=== PATIENT | male | born 1930 | race Caucasian/White ===

== ENCOUNTER 2016-12-28 11:05 | Observation (INO) | payer MEDICARE, BC ==
[~2016-12-28] VITALS: Ht 167.6 cm; Wt 65.9 kg
[2016-12-28] VITALS (8 sets, daily range): BP systolic 117–162; BP diastolic 64–82; PULSE 51–68; RESP 16–18; TEMP 96.4–98; O2SAT 93–97
[2016-12-28] MEDS ORDERED: METH5TAB7 PO (11:32)
[2016-12-28] MEDS ORDERED: ASPI325T PO (11:32)
[2016-12-28] MEDS ORDERED: MONUPAK PO (11:32)
[2016-12-28] MEDS ORDERED: ATOR10TA15 PO (11:32)
[2016-12-28] MEDS ORDERED: PARO20TA2 PO (11:32)
[2016-12-28] MEDS ORDERED: FERR325T PO (11:32)
[2016-12-28] MEDS ORDERED: AMLO5TAB2 PO (11:32)
[2016-12-28] MEDS ORDERED: SODI650T PO (11:32)
[2016-12-28] MEDS ORDERED: TUMS500C CHEW (11:32)
[2016-12-28] MEDS ORDERED: MULT1TAB84 PO (11:32)
[2016-12-28] MEDS ORDERED: METO25TA3 PO (11:32)
[2016-12-28] MEDS ORDERED: LEVO25TA4 PO (11:32)
[2016-12-28] MEDS ORDERED: TAMS0.4C4 PO (11:32)
[2016-12-28] MEDS ORDERED: ACET500C PO (11:33)
[2016-12-28] MEDS ORDERED: ALPR0.5T3 PO (11:33)
[2016-12-28] MEDS ORDERED: SODIUM CHLORIDE 0.9% FLUSH 5 ML FLUSH IVF PRN (11:45)
[2016-12-28] MEDS ORDERED: SODIUM CHLORID 0.9% 500 ML INJ 500 ML IV ONE (11:45)
[2016-12-28 12:21] LABS: AUTOMATED NEUTROPHIL # 3.5 TH/MM3 (1.8-7.7); BASOPHIL % 0.2 % (0.0-2.0); EOSINOPHIL # 0.2 TH/MM3 (0-0.4); EOSINOPHIL % 3.7 % (0.0-4.0); HEMATOCRIT 34.7 % (39.0-51.0); HEMO FLAGS DIFF FINAL; LYMPH % 23.1 % (9.0-44.0); LYMPHOCYTE # 1.2 TH/MM3 (1.0-4.8); MEAN CELL VOLUME 96.2 FL (80.0-100.0); MEAN CORPUSCULAR HEMOGLOBIN 31.9 PG (27.0-34.0); MEAN CORPUSCULAR HGB CONC 33.2 % (32.0-36.0); PLATELET COUNT 184 TH/MM3 (150-450); RED BLOOD COUNT 3.61 MIL/MM3 (4.50-5.90); RED CELL DISTRIBUTION WIDTH 13.3 % (11.6-17.2); WHITE BLOOD COUNT 5.4 TH/MM3 (4.0-11.0)
[2016-12-28 12:23] LABS: CHLORIDE 104 MEQ/L (98-107); SODIUM (NA) 142 MEQ/L (136-145)
[2016-12-28 12:26] LABS: ANION GAP 11 MEQ/L (5-15); BICARBONATE 26.8 MEQ/L (21.0-32.0); BLOOD UREA NITROGEN 73 MG/DL (7-18); MAGNESIUM 3.1 MG/DL (1.5-2.5)
[2016-12-28 12:27] LABS: PROTHROMBIN TIME - PATIENT 10.8 SEC (9.8-11.6)
[2016-12-28 12:29] LABS: AST (GOT) 13 U/L (15-37); GLOMERULAR FILTRATION RATE 8 ML/MIN (>89)
[2016-12-28 12:31] LABS: TOTAL BILIRUBIN ADULT 0.2 MG/DL (0.2-1.0)
[2016-12-28 12:32] LABS: ALKALINE PHOSPHATASE 79 U/L (45-117)
[2016-12-28 12:35] LABS: ALT (GPT) 13 U/L (12-78); CREATINE KINASE 85 U/L (39-308)
--- NOTE | 2016-12-28 13:03 | RADHPO ---
EXAM DATE/TIME: 12/28/2016 12:28 [place] COMPARISON: No previous studies available for comparison. INDICATIONS : General weakness. RADIATION DOSE: 67.49 CTDIvol (mGy) MEDICAL HISTORY : Cerebrovascular disease. Renal insufficiency, chronic. Cardiovascular disease. Hypertension. SURGICAL HISTORY : CABG ENCOUNTER: Initial ACUITY: 2 days PAIN SCALE: 0/10 LOCATION: cranial TECHNIQUE: Multiple contiguous axial images were obtained of the head. Using automated exposure control and adj ustment of the mA and/or kV according to patient size, radiation dose was kept as low as reasonably a chievable to obtain optimal diagnostic quality images. FINDINGS: Diffuse cerebral atrophy is noted. There is an old infarct involving the left basal ganglia with ex-vacuo dilatation of the left lateral ventricle. Significant periventricular and subcortical white matter small vessel ischemic changes are noted bilaterally. There is no acute hemorrhage, acute infarct, mass ef fect or extraaxial fluid collections. The bone windows are unremarkable. There are scattered lacuna r infarcts within the right basal ganglia. CONCLUSION: 1. Severe periventricular and subcortical white matter small vessel ischemic changes bilaterally. 2. Old infarct involving the left basal ganglia with ex-vacuo dilatation of the left lateral ventric le. 3. Diffuse cerebral atrophy. 4. Scattered old lacunar infarcts within the right basal ganglia. 5. No acute infarct, acute hemorrhage, mass effect or extraaxial fluid collections. Ronal Smith MD on December 28, 2016 at 12:48 Board Certified Radiologist. This report was verified electronically.
[2016-12-28 13:19] LABS: BLOOD, URINE LARGE (NEG); GLUCOSE,URINE 250 mg/dL (NEG); KETONE, URINE NEG (NEG)
[2016-12-28 13:20] LABS: NITRITE,URINE POS (NEG)
[2016-12-28 13:23] LABS: METHOD OF COLLECTION CLEAN CATCH; URINE COLOR YELLOW (YELLW/STRAW)
[2016-12-28 13:24] LABS: SQUAMOUS EPITHELIAL CELL URINE 0-5 /hpf (0-5); TRANSITIONAL EPI CELLS, URINE 0-5 /hpf
[2016-12-28 13:27] LABS: COMMENT (UR) CULTURE INDICATED; CULTURE IF INDICATED CULTURE INDICATED
[2016-12-28] MEDS ORDERED: VANCOMYCIN INJ 1,000 MG in SODIUM CHLOR 0.9% 250 ML INJ 250 ML IV STA (13:48)
[2016-12-28] MEDS ORDERED: SODIUM CHLORIDE 0.9% FLUSH 5 ML FLUSH FLUSH PRN (14:30)
--- NOTE | 2016-12-28 14:34 | PD ---
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 Patient's son states that the patient is still on antibiotic for his urinary tract infection which has been resistant to multiple antibiotics in the past. Patient has difficulty verbalizing and his son answers most questions for him. Modifying Factors: None Associated Signs & Symptoms: Worsening fatigue, general weakness Risk Factors: Chronic renal insufficiency, recent UTI, still on antibiotics PFSH Past Medical History Hx Anticoagulant Therapy: No Anxiety: Yes Cardiovascular Problems: Yes (TRIPLE BYPASS, ?NH, HTN) High Cholesterol: Yes Cerebrovascular Accident: Yes (CVA) Diabetes: No Diminished Hearing: No Hypertension: Yes Medical other: Yes (chronice uti's ) Respiratory: No Renal Failure: Yes (renal insuff and kidney disease) Thyroid Disease: Yes Tetanus Vaccination: Unknown Influenza Vaccination: Yes Past Surgical History Cardiac Surgery: Yes (cabg) Social History Alcohol Use: No Tobacco Use: No (never) Substance Use: No Allergies-Medications (Allergen,Severity, Reaction): Coded Allergies: No Known Allergies (Unverified , 12/28/16) Reported Meds & Prescriptions Reported Meds & Active Scripts Active Reported Alprazolam 0.5 Mg Tab 0.5 Mg PO Q6H PRN Acetaminophen 500 Mg Cap 500 Mg PO Q4HR PRN Monurol Packet (Fosfomycin Tromethamine) 3 Gm Powderpack 1 Pack PO Q3D Methylphenidate IR (Methylphenidate HCl) 5 Mg Tab 5 Mg PO DAILY Tums (Calcium Carbonate (Antacid)) 500 Mg Chew 500 Mg CHEW BID Tamsulosin (Tamsulosin HCl) 0.4 Mg Cap 0.4 Mg PO DAILY Sodium Bicarbonate 650 Mg Tab 650 Mg PO BIDPC Paroxetine (Paroxetine HCl) 20 Mg Tab 20 Mg PO DAILY Multivitamin Adults (Multiple Vitamins W/ Minerals) 1 Tab 1 Tab PO DAILY Metoprolol Tartrate 25 Mg Tab 25 Mg PO BID Levothyroxine (Levothyroxine Sodium) 25 Mcg Tab 25 Mcg PO DAILY Atorvastatin (Atorvastatin Calcium) 10 Mg Tab 10 Mg PO HS Aspirin 325 Mg Tab 325 Mg PO DAILY Amlodipine (Amlodipine Besylate) 5 Mg Tab 5 Mg PO DAILY Review of Systems Except as stated in HPI: all other systems reviewed are Neg (according to son) Physical Exam Narrative GENERAL: Well-nourished, well-developed elderly white male patient who has expressive aphasia, is not in acute distress, awake, alert. SKIN: Warm and dry. HEAD: Normocephalic. EYES: No scleral icterus. No injection or drainage. NECK: Supple, trachea midline. CARDIOVASCULAR: Regular rate and rhythm without murmurs, gallops, or rubs. RESPIRATORY: Breath sounds equal bilaterally. No accessory muscle use. GASTROINTESTINAL: Abdomen soft, non-tender, nondistended. MUSCULOSKELETAL: No cyanosis, or edema. BACK: Nontender without obvious deformity. No CVA tenderness. Data Data Last Documented VS Vital Signs Date Time Temp Pulse Resp B/P Pulse Ox O2 Delivery O2 Flow Rate FiO2 12/28/16 13:25 51 16 145/73 95 Room Air 12/28/16 11:12 98.0 Orders Complete Blood Count With Diff (12/28/16 11:42) Comprehensive Metabolic Panel (12/28/16 11:42) Magnesium (Mg) (12/28/16 11:42) Ckmb (Isoenzyme) Profile (12/28/16 11:42) Troponin I (12/28/16 11:42) Act Partial Throm Time (Ptt) (12/28/16 11:42) Prothrombin Time / Inr (Pt) (12/28/16 11:42) Urinalysis - C+S If Indicated (12/28/16 11:42) Ct Brain W/O Iv Contrast(Rout) (12/28/16 11:42) Ecg Monitoring (12/28/16 11:42) Iv Access Insert/Monitor (12/28/16 11:42) Oximetry (12/28/16 11:42) Sodium Chloride 0.9% Flush (Ns Flush) (12/28/16 11:45) Blood Culture (12/28/16 11:42) Sodium Chlorid 0.9% 500 Ml Inj (Ns 500 M (12/28/16 11:45) Urine Culture (12/28/16 13:15) Lactic Acid Sepsis Protocol (12/28/16 13:48) Vancomycin Inj (Vancomycin Inj) (12/28/16 13:48) Admit Order (Ed Use Only) (12/28/16 14:08) Labs Laboratory Tests Test 12/28/16 12/28/16 11:23 13:15 White Blood Count 5.4 TH/MM3 Red Blood Count 3.61 MIL/MM3 Hemoglobin 11.5 GM/DL Hematocrit 34.7 % Mean Corpuscular Volume 96.2 FL Mean Corpuscular Hemoglobin 31.9 PG Mean Corpuscular Hemoglobin 33.2 % Concent Red Cell Distribution Width 13.3 % Platelet Count 184 TH/MM3 Mean Platelet Volume 9.9 FL Neutrophils (%) (Auto) 64.0 % Lymphocytes (%) (Auto) 23.1 % Monocytes (%) (Auto) 9.0 % Eosinophils (%) (Auto) 3.7 % Basophils (%) (Auto) 0.2 % Neutrophils # (Auto) 3.5 TH/MM3 Lymphocytes # (Auto) 1.2 TH/MM3 Monocytes # (Auto) 0.5 TH/MM3 Eosinophils # (Auto) 0.2 TH/MM3 Basophils # (Auto) 0.0 TH/MM3 CBC Comment DIFF FINAL Differential Comment Prothrombin Time 10.8 SEC Prothromb Time International 1.0 RATIO Ratio Activated Partial 28.0 SEC Thromboplast Time Sodium Level 142 MEQ/L Potassium Level 5.0 MEQ/L Chloride Level 104 MEQ/L Carbon Dioxide Level 26.8 MEQ/L Anion Gap 11 MEQ/L Blood Urea Nitrogen 73 MG/DL Creatinine 6.50 MG/DL Estimat Glomerular Filtration 8 ML/MIN Rate Random Glucose 163 MG/DL Calcium Level 8.1 MG/DL Magnesium Level 3.1 MG/DL Total Bilirubin 0.2 MG/DL Aspartate Amino Transf 13 U/L (AST/SGOT) Alanine Aminotransferase 13 U/L (ALT/SGPT) Alkaline Phosphatase 79 U/L Total Creatine Kinase 85 U/L Troponin I 0.07 NG/ML Total Protein 7.9 GM/DL Albumin 3.3 GM/DL Urine Collection Type CLEAN CATCH Urine Color YELLOW Urine Turbidity SLIGHT Urine pH 7.0 Urine Specific [place] 1.013 Urine Protein 100 mg/dL Urine Glucose (UA) 250 mg/dL Urine Ketones NEG mg/dL Urine Occult Blood LARGE Urine Nitrite POS Urine Bilirubin NEG Urine Leukocyte Esterase LARGE Urine RBC 25-49 /hpf Urine WBC 20-24 /hpf Urine WBC Clumps FEW Urine Squamous Epithelial 0-5 /hpf Cells Urine Transitional Epithelial 0-5 /hpf Cells Microscopic Urinalysis Comment CULTURE INDICATED Urine Collection Time 13:15 [facility] Medical Decision Making Medical Screen Exam Complete: Yes Emergency Medical Condition: Yes Medical Record Reviewed: Yes Interpretation(s) EKG shows normal sinus rhythm with first-degree AV block and a partial right bundle branch block at a rate of 60 bpm with no signs of acute ST-T changes. Laboratory Tests Test 12/28/16 12/28/16 11:23 13:15 Red Blood Count 3.61 MIL/MM3 (4.50-5.90) Hemoglobin 11.5 GM/DL (13.0-17.0) Hematocrit 34.7 % (39.0-51.0) Monocytes (%) (Auto) 9.0 % (0.0-8.0) Blood Urea Nitrogen 73 MG/DL (7-18) Creatinine 6.50 MG/DL (0.60-1.30) Estimat Glomerular Filtration 8 ML/MIN (>89) Rate Random Glucose 163 MG/DL (74-106) Calcium Level 8.1 MG/DL (8.5-10.1) Magnesium Level 3.1 MG/DL (1.5-2.5) Aspartate Amino Transf 13 U/L (15-37) (AST/SGOT) Troponin I 0.07 NG/ML (0.02-0.05) Albumin 3.3 GM/DL (3.4-5.0) Urine Protein 100 mg/dL (NEG-TRACE) Urine Glucose (UA) 250 mg/dL (NEG) Urine Occult Blood LARGE (NEG) Urine Nitrite POS (NEG) Urine Leukocyte Esterase LARGE (NEG) Urine RBC 25-49 /hpf (0-3) Urine WBC 20-24 /hpf (0-5) Urine WBC Clumps FEW (NONE) Last [address] 12/28/16 1142 Signed Impressions: Service Date/Time: Wednesday, December 28, 2016 12:28 - CONCLUSION: 1. Severe periventricular and subcortical white matter small vessel ischemic changes bilaterally. 2. Old infarct involving the left basal ganglia with ex-vacuo dilatation of the left lateral ventricle. 3. Diffuse cerebral atrophy. 4. Scattered old lacunar infarcts within the right basal ganglia. 5. No acute infarct, acute hemorrhage, mass effect or extraaxial fluid collections. Ronal Smith MD Differential Diagnosis General weaknessUTI versus sepsis versus dehydration versus acute on chronic renal failure versus metabolic issues Narrative Course Lab work indicates significant UTI. His renal functions are worsening. Concerned that he is already on by mouth antibiotics with ongoing UTI, my plan would be to give him IV antibiotics, cultures were done before antibiotics. In addition, his renal function will have to be reevaluated by nephrology. His son states that he had been seen by Dr. Lira at other facility. This point, case is discussed with Dr. Mckeon for admission. Diagnosis Primary Impression: Acute on chronic renal failure Additional Impression: Recurrent UTI Admitting Information Admitting Physician Requests: Admit Ashley Stiles MD Dec 28, 2016 14:33
--- NOTE | 2016-12-28 16:21 | HHI.HP ---
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 Patient was brought into the emergency room by his son and said that he was increasingly unsteady and with worsening weakness from his baseline. He was not drinking well until he was eating okay. Patient' s recently been in the hospital and was discharged to assisted living facility 2 weeks ago after being treated for UTI with ESBL. He has been taking his antibiotics (fosfomycin). The patient himself has no complaints. He has a dense expressive aphasia but appears to answer questions and attempts to follow commands quite readily. Patient does have mildly dry mucous membranes. There are no fevers or chills. He has clear urine in his chronic indwelling Mckeon catheter. The patient is recommended for observation due to increased weakness and possible dehydration Review of Systems Constitutional: DENIES: Diaphoretic episodes, Fatigue, Fever, Weight gain, Weight loss, Chills, Dizziness, Change in appetite, Night Sweats Endocrine: DENIES: Heat/cold intolerance, Polydipsia, Polyuria, Polyphagia Eyes: DENIES: Blurred vision, Diplopia, Eye inflammation, Eye pain, Vision loss , Photosensitivity, Double Vision Respiratory: DENIES: Apneas, Cough, Snoring, Wheezing, Hemoptysis, Sputum production, Shortness of breath Cardiovascular: DENIES: Chest pain, Palpitations, Syncope, Dyspnea on Exertion , PND, Lower Extremity Edema, Orthopnea, Claudication Gastrointestinal: DENIES: Abdominal pain, Black stools, Bloody stools, Constipation, Diarrhea, Nausea, Vomiting, Difficulty Swallowing, Anorexia Genitourinary: DENIES: Sexual dysfunction, Urinary frequency, Urinary incontinence, Urgency, Hematuria, Dysuria, Nocturia, Penile Discharge, Testicular Pain, Testicular Swelling Musculoskeletal: DENIES: Joint pain, Muscle aches, Stiffness, Joint Swelling, Back pain, Neck pain Integumentary: DENIES: Abnormal pigmentation, Nail changes, Pruritus, Rash Hematologic/lymphatic: DENIES: Bruising, Lymphadenopathy Immunologic/allergic: DENIES: Eczema, Urticaria Neurologic: COMPLAINS OF: Abnormal gait (at baseline due to stroke), Localized weakness (chronic due to right hemiparesis), Speech Problems (expressive aphasia due to stroke), Tremor, Poor Balance, DENIES: Paresthesias, Seizures Psychiatric: DENIES: Anxiety, Confusion, Mood changes, Depression, Hallucinations, Agitation, Suicidal Ideation, Homicidal Ideation, Delusions Past Family Social History Past Medical History End-stage renal disease, not on dialysis History of a stroke Thyroid disease Hypertension Coronary artery disease Past Surgical History Cardiac bypass Reported Medications Reviewed in the medical record, still taking his antibiotics Allergies: Coded Allergies: No Known Allergies (Unverified , 12/28/16) Active Ordered Medications Reviewed in the medical record Family History Family history of hypertension Social History , moved to [place] in October 2016 Currently in [facility], no tobacco or alcohol dependency Physical Exam Vital Signs Vital Signs Date Time Temp Pulse Resp B/P Pulse Ox O2 Delivery O2 Flow Rate FiO2 12/28/16 16:07 66 16 96 Room Air 12/28/16 16:06 66 16 150/72 96 Room Air 12/28/16 14:41 97.8 56 16 162/76 95 Room Air 12/28/16 13:25 51 16 145/73 95 Room Air 12/28/16 13:23 16 95 Room Air 12/28/16 11:40 60 16 12/28/16 11:40 60 16 148/74 95 Room Air 12/28/16 11:12 98.0 65 16 138/80 93 Physical Exam GENERAL: This is a well-nourished, well-developed patient, in no apparent distress. SKIN: No rashes, ecchymoses or lesions. Cool and dry. HEAD: Atraumatic. Normocephalic. No temporal or scalp tenderness. EYES: Pupils equal round and reactive. Extraocular motions intact. No scleral icterus. No injection or drainage. ENT: Nose without bleeding, purulent drainage or septal hematoma. Throat without erythema, tonsillar hypertrophy or exudate. Uvula midline. Airway patent. NECK: Trachea midline. No JVD or lymphadenopathy. Supple, nontender, no meningeal signs. CARDIOVASCULAR: Regular rate and rhythm without murmurs, gallops, or rubs. RESPIRATORY: Clear to auscultation. Breath sounds equal bilaterally. No wheezes , rales, or rhonchi. GASTROINTESTINAL: Chronic Mckeon, Abdomen soft, non-tender, nondistended. No hepato-splenomegaly, or palpable masses. No guarding. MUSCULOSKELETAL: right sided hemiparesis xtremities without clubbing, cyanosis , or edema. No joint tenderness, effusion, or edema noted. No calf tenderness. Negative Homans sign bilaterally. NEUROLOGICAL: Awake and alert. Cranial nerves II through XII intact. Motor and sensory grossly within normal limits. Five out of 5 muscle strength in all muscle groups. Dense expressive aphasia Laboratory Laboratory Tests Test 12/28/16 12/28/16 12/28/16 11:23 13:15 13:58 White Blood Count 5.4 Red Blood Count 3.61 Hemoglobin 11.5 Hematocrit 34.7 Mean Corpuscular Volume 96.2 Mean Corpuscular Hemoglobin 31.9 Mean Corpuscular Hemoglobin 33.2 Concent Red Cell Distribution Width 13.3 Platelet Count 184 Mean Platelet Volume 9.9 Neutrophils (%) (Auto) 64.0 Lymphocytes (%) (Auto) 23.1 Monocytes (%) (Auto) 9.0 Eosinophils (%) (Auto) 3.7 Basophils (%) (Auto) 0.2 Neutrophils # (Auto) 3.5 Lymphocytes # (Auto) 1.2 Monocytes # (Auto) 0.5 Eosinophils # (Auto) 0.2 Basophils # (Auto) 0.0 CBC Comment DIFF FINAL Differential Comment Prothrombin Time 10.8 Prothromb Time International 1.0 Ratio Activated Partial 28.0 Thromboplast Time Sodium Level 142 Potassium Level 5.0 Chloride Level 104 Carbon Dioxide Level 26.8 Anion Gap 11 Blood Urea Nitrogen 73 Creatinine 6.50 Estimat Glomerular Filtration 8 Rate Random Glucose 163 Calcium Level 8.1 Magnesium Level 3.1 Total Bilirubin 0.2 Aspartate Amino Transf 13 (AST/SGOT) Alanine Aminotransferase 13 (ALT/SGPT) Alkaline Phosphatase 79 Total Creatine Kinase 85 Troponin I 0.07 Total Protein 7.9 Albumin 3.3 Urine Collection Type CLEAN CATCH Urine Color YELLOW Urine Turbidity SLIGHT Urine pH 7.0 Urine Specific [place] 1.013 Urine Protein 100 Urine Glucose (UA) 250 Urine Ketones NEG Urine Occult Blood LARGE Urine Nitrite POS Urine Bilirubin NEG Urine Leukocyte Esterase LARGE Urine RBC 25-49 Urine WBC 20-24 Urine WBC Clumps FEW Urine Squamous Epithelial 0-5 Cells Urine Transitional Epithelial 0-5 Cells Microscopic Urinalysis Comment CULTURE INDICATED Urine Collection Time 13:15 Lactic Acid Level 1.0 Date/Time Procedure Status Source Growth 12/28/16 13:15 Urine Culture Received Urine Catheterized Urine Pending 12/28/16 11:59 Aerobic Blood Culture Received Blood Peripheral Pending 12/28/16 11:59 Anaerobic Blood Culture Received Blood Peripheral Pending Result Diagram: 12/28/16 1123 12/28/16 1123 Imaging Last Impressions Head CT 12/28/16 1142 Signed Impressions: Service Date/Time: Wednesday, December 28, 2016 12:28 - CONCLUSION: 1. Severe periventricular and subcortical white matter small vessel ischemic changes bilaterally. 2. Old infarct involving the left basal ganglia with ex-vacuo dilatation of the left lateral ventricle. 3. Diffuse cerebral atrophy. 4. Scattered old lacunar infarcts within the right basal ganglia. 5. No acute infarct, acute hemorrhage, mass effect or extraaxial fluid collections. Ronal Smith MD Assessment and Plan Problem List: (1) CKD (chronic kidney disease) stage 4, GFR 15-29 ml/min ICD Code: N18.4 Status: Acute Plan: Appears stable at this time. We'll continue to avoid further nephrotoxic injury Patient will need to establish with a primary chocolate maker for further care We'll follow renal function after hydration (2) Dehydration ICD Code: E86.0 Status: Acute Plan: Continue IV hydration overnight and follow clinically (3) Weakness ICD Code: R53.1 Status: Acute Plan: Patient with increased fall risks due to right sided hemiparesis from old stroke Continue with PT/OT request for service in evaluation Patient safety reinforced with son Patient has an Evelia Kaiser MD Dec 28, 2016 16:21
[2016-12-28] MEDS: SODIUM CHLOR 0.9% 1000 ML INJ 1,000 ML IV SCH (17:09)
[2016-12-28] MEDS: SODIUM CHLORIDE 0.9% FLUSH 5 ML FLUSH FLUSH SCH (21:00)
[2016-12-29] MEDS: SODIUM CHLOR 0.9% 1000 ML INJ 1,000 ML IV SCH (04:10)
[2016-12-29 04:24] VITALS: BP 159/88; PULSE 66; RESP 16; TEMP 97; O2SAT 97
[2016-12-29 08:00] VITALS: BP 156/83; PULSE 70; RESP 17; TEMP 97.4; O2SAT 95
[2016-12-29] MEDS: SODIUM CHLORIDE 0.9% FLUSH 5 ML FLUSH FLUSH SCH (09:00)
[2016-12-29 11:52] LABS: BICARBONATE 18.5 MEQ/L (21.0-32.0); POTASSIUM 5.1 MEQ/L (3.5-5.1)
[2016-12-29 12:00] VITALS: BP 137/78; PULSE 70; RESP 18; TEMP 97.5; O2SAT 96
--- NOTE | 2016-12-29 12:12 | HHI.FF ---
Face to Face Verification Diagnosis: (1) CKD (chronic kidney disease) stage 4, GFR 15-29 ml/min (2) Dehydration (3) Acute on chronic renal failure Physical Therapy Order: Evaluate and Treat, Improve ambulation Occupational Therapy Order: Evaluate and Treat, Improve ADL Speech Therapy Order: To Improve: Speech and communication skills Home Health Nursing Order: Medical education Transplant Nurse Practitioner Order: To Provide: Long range planning I have seen patient Carson Paris on 12/29/16. My clinical findings support the need for the requested home health care services because: Limited ability to care for self I certify that my clinical findings support that this patient is homebound because: Impaired cognitive ability/safety Evelia Mckeon MD Dec 29, 2016 12:12
--- NOTE | 2016-12-29 12:15 | HHI.DS ---
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 Patient was brought into the emergency room by his son and said that he was increasingly unsteady and with worsening weakness from his baseline. He was not drinking well until he was eating okay. Patient' s recently been in the hospital and was discharged to assisted living facility 2 weeks ago after being treated for UTI with ESBL. He has been taking his antibiotics (fosfomycin). The patient himself has no complaints. He has a dense expressive aphasia but appears to answer questions and attempts to follow commands quite readily. Patient does have mildly dry mucous membranes. There are no fevers or chills. He has clear urine in his chronic indwelling Oliva catheter. The patient is recommended for observation due to increased weakness and possible dehydration CBC/BMP: 12/28/16 1123 12/29/16 1030 Significant Findings Laboratory Tests Test 12/28/16 12/28/16 12/29/16 11:23 13:15 10:30 Red Blood Count 3.61 MIL/MM3 (4.50-5.90) Hemoglobin 11.5 GM/DL (13.0-17.0) Hematocrit 34.7 % (39.0-51.0) Monocytes (%) (Auto) 9.0 % (0.0-8.0) Blood Urea Nitrogen 73 MG/DL (7-18) 67 MG/DL (7-18) Creatinine 6.50 MG/DL 5.80 MG/DL (0.60-1.30) (0.60-1.30) Estimat Glomerular Filtration 8 ML/MIN (>89) 9 ML/MIN (>89) Rate Random Glucose 163 MG/DL 157 MG/DL (74-106) (74-106) Calcium Level 8.1 MG/DL 7.5 MG/DL (8.5-10.1) (8.5-10.1) Magnesium Level 3.1 MG/DL (1.5-2.5) Aspartate Amino Transf 13 U/L (15-37) (AST/SGOT) Troponin I 0.07 NG/ML (0.02-0.05) Albumin 3.3 GM/DL (3.4-5.0) Urine Protein 100 mg/dL (NEG-TRACE) Urine Glucose (UA) 250 mg/dL (NEG) Urine Occult Blood LARGE (NEG) Urine Nitrite POS (NEG) Urine Leukocyte Esterase LARGE (NEG) Urine RBC 25-49 /hpf (0-3) Urine WBC 20-24 /hpf (0-5) Urine WBC Clumps FEW (NONE) Chloride Level 113 MEQ/L (98-107) Carbon Dioxide Level 18.5 MEQ/L (21.0-32.0) Imaging Last Impressions Head CT 12/28/16 1142 Signed Impressions: Service Date/Time: Wednesday, December 28, 2016 12:28 - CONCLUSION: 1. Severe periventricular and subcortical white matter small vessel ischemic changes bilaterally. 2. Old infarct involving the left basal ganglia with ex-vacuo dilatation of the left lateral ventricle. 3. Diffuse cerebral atrophy. 4. Scattered old lacunar infarcts within the right basal ganglia. 5. No acute infarct, acute hemorrhage, mass effect or extraaxial fluid collections. Ronal Smith MD PE at Discharge GENERAL: This is a well-nourished, well-developed patient, in no apparent distress. CARDIOVASCULAR: Regular rate and rhythm without murmurs, gallops, or rubs. RESPIRATORY: Clear to auscultation. Breath sounds equal bilaterally. No wheezes , rales, or rhonchi. GASTROINTESTINAL: chronic oliva, Abdomen soft, non-tender, nondistended. Normal active bowel sounds MUSCULOSKELETAL: Extremities without clubbing, cyanosis, or edema. NEURO: Alert & Oriented to person, dense right hemiparesis, expressive aphasia Pt update on day of discharge Patient seen today in follow-up for weakness. Appears better after hydration. Renal function remains relatively stable. Patient's family still would not like any further renal replacement therapy. Discharge plans discussed with [id number] at bedside as well as Marisol [facility]. Patient will need to continue with home healthcare primary care as well as outpatient nephrology care Hospital Course This patient is a 6-year-old gentleman was admitted overnight for dehydration. Patient received IV fluids and did well. Multiple discussions were held with the patient and family regarding recent hospitalizations as well as recent medical treatments at [facility] for urinary tract infection. Patient has to continue his antibiotic to be continue with follow-up as an outpatient with his primary care provider. No acute issues were found this hospitalization. Pt Condition on Discharge: Good Discharge Disposition: CARE HOME with [facility] Discharge Time: > 30 minutes Discharge Instructions DIET: Follow Instructions for: Heart Healthy Diet Activities you can perform: Regular-No Restrictions Evelia Mckeon MD Dec 29, 2016 12:15
--- NOTE | 2016-12-29 12:59 | EKG ---
Date Performed: 12/28/2016 Time Performed: 11:21:46 PTAGE: 86 years EKG: Sinus rhythm with 1st degree A-V block Right bundle branch block Inferior infarct - age undetermined Abnormal ECG NO PREVIOUS TRACING DOCTOR: Perry Jaime Interpretating Date/Time 12/29/2016 12:58:10
== END 2016-12-29 14:46 | disposition home or self-care (01) ==
LOC: PHED 11:05 → INTOOBSV 14:08 → PHEDA 14:08 → PH3A 16:50
PROVIDERS: ADMIT Hospitalist; ATTEND Hospitalist
DX: N17.9 Acute kidney failure, unspecified (principal); N18.4 Chronic kidney disease, stage 4 (severe); I12.9 Hypertensive chronic kidney disease with stage 1 through stage 4 chronic kidney disease, or unspecified chronic kidney disease; E86.0 Dehydration; R53.1 Weakness; I25.10 Atherosclerotic heart disease of native coronary artery without angina pectoris; R94.31 Abnormal electrocardiogram [ECG] [EKG]; I69.351 Hemiplegia and hemiparesis following cerebral infarction affecting right dominant side; I69.320 Aphasia following cerebral infarction; N39.0 Urinary tract infection, site not specified; B96.5 Pseudomonas (aeruginosa) (mallei) (pseudomallei) as the cause of diseases classified elsewhere; I25.2 Old myocardial infarction; E78.00 Pure hypercholesterolemia, unspecified; Z95.1 Presence of aortocoronary bypass graft; Z99.2 Dependence on renal dialysis
CPT/HCPCS: 70450; 80048; 80053; 81001; 82550; 83605; 83735; 84484; 85025; 85610; 85730; 87040; 87077; 87086; 87186; 93005; 96361; 96374; 97166; 99285; G0378; G8987; G8988; G8989; J3370; J7030; J7040; J7050

== ENCOUNTER 2017-11-21 09:41 | Inpatient (IN) | payer MEDICARE, BC ==
[~2017-11-21] VITALS: Ht 167.6 cm; Wt 72.8 kg
[2017-11-21] VITALS (7 sets, daily range): BP systolic 109–146; BP diastolic 52–79; PULSE 68–88; RESP 17–20; TEMP 96.9–98.7; O2SAT 94–98
[~2017-11-21 09:41] MED LIST: ACET500C PO; ALPR0.5T3 PO; AMLO5TAB2 PO; ASPI-183 PO; ATOR10TA15 PO; LEVO25TA4 PO; METH5TAB7 PO; METO25TA3 PO; MONUPAK PO; MULT1TAB84 PO; PARO20TA2 PO; SODI650T PO; TAMS0.4C4 PO; TUMS500C CHEW
--- NOTE | 2017-11-21 10:07 | PD ---
HPI Chief Complaint: altered mental status Time Seen by Provider: 09:45 Travel History International Travel<30 days: No Contact w/Intl Traveler<30days: No Traveled to known affect area: No History of Present Illness HPI This 87-year-old male is brought by paramedics. He resides at a small assisted living facility. He apparently has been more confused than usual today. 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 He is normally able to feed himself. Today he was not able to feed himself. He has a history of renal insufficiency and electrolyte imbalance. He was admitted to [facility] about a month ago for treatment of a possible urinary tract infection. He had urinary retention at that time and had to have a Mckeon inserted. It was inserted by a urologist who apparently had quite a bit of difficulty with the insertion. The patient sees Dr. Iyer for his kidney injury. His creatinine has been running around 5 or 6. He has never been dialyzed and his son says that he does not wish for him to be dialyzed at any time. His son does say that in the past when he has had urinary tract infections they have been due to resistant organisms he has been on imipenem PFSH Past Medical History Hx Anticoagulant Therapy: No Anxiety: Yes Cardiovascular Problems: Yes High Cholesterol: Yes Cerebrovascular Accident: Yes (CVA) Diabetes: No Diminished Hearing: No Hypertension: Yes Musculoskeletal: No Neurologic: Yes Reproductive: No Respiratory: No Renal Failure: Yes (renal insuff and kidney disease 4) Thyroid Disease: Yes Past Surgical History Cardiac Surgery: Yes (cabg) Social History Alcohol Use: No Tobacco Use: No (never) Substance Use: No Allergies-Medications (Allergen,Severity, Reaction): Coded Allergies: No Known Allergies (Unverified , 12/28/16) Reported Meds & Prescriptions Reported Meds & Active Scripts Active Reported Alprazolam 0.5 Mg Tab 0.5 Mg PO Q6H PRN Methylphenidate IR (Methylphenidate HCl) 5 Mg Tab 5 Mg PO DAILY Tamsulosin (Tamsulosin HCl) 0.4 Mg Cap 0.4 Mg PO DAILY Sodium Bicarbonate 650 Mg Tab 650 Mg PO BIDPC Paroxetine (Paroxetine HCl) 20 Mg Tab 20 Mg PO DAILY Metoprolol Tartrate 25 Mg Tab 25 Mg PO BID Levothyroxine (Levothyroxine Sodium) 25 Mcg Tab 25 Mcg PO DAILY Atorvastatin (Atorvastatin Calcium) 10 Mg Tab 10 Mg PO HS Aspirin 325 Mg Tab 325 Mg PO DAILY Amlodipine (Amlodipine Besylate) 5 Mg Tab 5 Mg PO DAILY Review of Systems ROS Limitations: Altered Mental Status, Speech Impaired Physical Exam Narrative GENERAL: Elderly male somewhat lethargic but he does respond to voice and appears to understand. He is a phasic SKIN: Focused skin assessment warm/dry. HEAD: Atraumatic. Normocephalic. EYES: Pupils equal and round. No scleral icterus. No injection or drainage. ENT: No nasal bleeding or discharge. Mucous membranes pink and moist. NECK: Trachea midline. No JVD. CARDIOVASCULAR: Regular rate and rhythm. No murmur appreciated. RESPIRATORY: No accessory muscle use. Clear to auscultation. Breath sounds equal bilaterally. GASTROINTESTINAL: Abdomen soft, non-tender, nondistended. Hepatic and splenic margins not palpable. There is an indwelling Mckeon catheter MUSCULOSKELETAL: No obvious deformities. No clubbing. No cyanosis. No edema. NEUROLOGICAL: Lethargic. There is paralysis of the right arm. He is a phasic PSYCHIATRIC: Not testable Data Data Last Documented VS Vital Signs Date Time Temp Pulse Resp B/P (MAP) Pulse Ox O2 Delivery O2 Flow Rate FiO2 11/21/17 11:45 85 17 124/59 (80) 98 Room Air 11/21/17 09:45 97.6 Orders Orders Electrocardiogram (11/21/17 09:57) Complete Blood Count With Diff (11/21/17 09:57) Comprehensive Metabolic Panel (11/21/17 09:57) Blood Culture (11/21/17 09:57) Urinalysis - C+S If Indicated (11/21/17 09:57) Magnesium (Mg) (11/21/17 09:57) Phosphorus (Po4) (11/21/17 09:57) Chest, Single Ap (11/21/17 09:57) Ct Brain W/O Iv Contrast(Rout) (11/21/17 09:57) Sodium Chlor 0.9% 1000 Ml Inj (Ns 1000 M (11/21/17 10:00) Urine Culture (11/21/17 11:22) Sodium Polysty Sulfate Liq (Kayexalate L (11/21/17 12:15) Sorbitol 70% Liq (Sorbitol 70% Liq) (11/21/17 12:15) Dextrose 50% In Franci (Vial) Inj (D50w (Vi (11/21/17 12:15) Insulin Human Regular Inj (Novolin R Inj (11/21/17 12:15) Sodium Chlor 0.9% 1000 Ml Inj (Ns 1000 M (11/21/17 12:30) Labs Laboratory Tests Test 11/21/17 11:10 11/21/17 11:22 White Blood Count 6.4 TH/MM3 Red Blood Count 3.16 MIL/MM3 Hemoglobin 9.1 GM/DL Hematocrit 29.2 % Mean Corpuscular Volume 92.3 FL Mean Corpuscular Hemoglobin 28.7 PG Mean Corpuscular Hemoglobin Concent 31.1 % Red Cell Distribution Width 18.4 % Platelet Count 213 TH/MM3 Mean Platelet Volume 9.0 FL Neutrophils (%) (Auto) 66.9 % Lymphocytes (%) (Auto) 21.6 % Monocytes (%) (Auto) 7.8 % Eosinophils (%) (Auto) 3.4 % Basophils (%) (Auto) 0.3 % Neutrophils # (Auto) 4.3 TH/MM3 Lymphocytes # (Auto) 1.4 TH/MM3 Monocytes # (Auto) 0.5 TH/MM3 Eosinophils # (Auto) 0.2 TH/MM3 Basophils # (Auto) 0.0 TH/MM3 CBC Comment AUTO DIFF Blood Urea Nitrogen 102 MG/DL Creatinine 9.70 MG/DL Random Glucose 144 MG/DL Total Protein 8.2 GM/DL Albumin 3.5 GM/DL Calcium Level 8.5 MG/DL Phosphorus Level 6.1 MG/DL Magnesium Level 3.4 MG/DL Alkaline Phosphatase 78 U/L Aspartate Amino Transf (AST/SGOT) 23 U/L Alanine Aminotransferase (ALT/SGPT) 17 U/L Total Bilirubin 0.4 MG/DL Sodium Level 143 MEQ/L Potassium Level 6.7 MEQ/L Chloride Level 108 MEQ/L Carbon Dioxide Level 22.7 MEQ/L Anion Gap 12 MEQ/L Estimat Glomerular Filtration Rate 5 ML/MIN Urine Collection Type CLEAN CATCH Urine Color YELLOW Urine Turbidity TURBID Urine pH 7.0 Urine Specific [place] 1.015 Urine Protein 100 mg/dL Urine Glucose (UA) NEG mg/dL Urine Ketones NEG mg/dL Urine Occult Blood TRACE Urine Nitrite POS Urine Bilirubin NEG Urine Leukocyte Esterase LARGE Urine WBC INNUM /hpf Urine WBC Clumps MANY Urine Squamous Epithelial Cells 0-5 /hpf Urine Bacteria MANY /hpf Urine Yeast with Hyphae MOD Microscopic Urinalysis Comment CULTURE INDICATED MDM Medical Decision Making Medical Screen Exam Complete: Yes Emergency Medical Condition: Yes Medical Record Reviewed: Yes Differential Diagnosis Differential includes CVA, subdural, electrolyte imbalance, dehydration Narrative Course CT brain shows chronic and small vessel ischemic changes without any evidence for acute hemorrhage or mass effect. There is noted to be encephalomalacia in the left basal ganglia which has been noted on previous scan. Sodium is 143 with potassium of 6.7. Hemoglobin is 9.1. His BUNs today's 102. His creatinine is 9.7. When he was here in December his creatinine was 5.8. Urinalysis does show evidence of urinary tract infection. Patient is being started on Kayexalate with sorbitol D50 and insulin. I have discussed the case with Dr. Iyer. The patient's son who is his power of undercollar baster is quite adamant that he does not want any dialysis. Dr. Iyer advises that under these circumstances he has very little to offer and says that palliative care should be considered. The patient in the past has had a do not resuscitate order. The son who is power of undercollar baster is has agreed to a DO NOT RESUSCITATE order. Son has expressed an interest in talking with hospice Diagnosis Primary Impression: Acute on chronic renal failure Additional Impressions: Hyperkalemia Urinary tract infection Admitting Information Admitting Physician Requests: Admit Rufino Baez MD Nov 21, 2017 10:07
--- NOTE | 2017-11-21 10:30 | RADRPT ---
EXAM DATE/TIME: 11/21/2017 10:11 [facility] COMPARISON: CT BRAIN W/O CONTRAST, December 28, 2016, 12:28. INDICATIONS : Altered mental status. RADIATION DOSE: 64.41 CTDIvol (mGy) MEDICAL HISTORY : Cerebrovascular disease. Renal failure, chronic. Cardiovascular diseaseHypertension. SURGICAL HISTORY : CABG ENCOUNTER: Initial ACUITY: 1 day PAIN SCALE: 0/10 LOCATION: cranial TECHNIQUE: Multiple contiguous axial images were obtained of the head. Using automated exposure control and adj ustment of the mA and/or kV according to patient size, radiation dose was kept as low as reasonably a chievable to obtain optimal diagnostic quality images. DICOM format image data is available electro nically for review and comparison. FINDINGS: There is no evidence for intracranial hemorrhage, mass effect, mass lesions, or edema. The visualize d bony structures appear intact. Moderate degree of brain atrophy is seen. Moderate periventricular white matter changes are seen nonspecific mostly consistent with chronic small vessel ischemic change s. There are no signs of acute infarction for technique. There is encephalomalacia in the left basal ganglia not changed. CONCLUSION: Chronic and small vessel ischemic changes without any evidence for acute hemorrhage o r mass effect. Danisha Damon MD on November 21, 2017 at 10:24 Board Certified Radiologist. This report was verified electronically.
--- NOTE | 2017-11-21 10:34 | RADRPT ---
EXAM DATE/TIME: 11/21/2017 10:10 [facility] COMPARISON: No previous studies available for comparison. INDICATIONS : Weakness, short of breath. MEDICAL HISTORY : Stroke. Cardiovascular disease. Hypertension. SURGICAL HISTORY : CABG. ENCOUNTER: Initial ACUITY: 2 days PAIN SCORE: 0/10 LOCATION: Bilateral chest FINDINGS: The heart is enlarged. The patient is post median sternotomy. Mediastinal contours are within normal limits. The lungs demonstrate mild chronic interstitial changes but are otherwise clear. Visualized b mary structures are grossly intact. CONCLUSION: 1. Mild chronic appearing interstitial changes. No acute abnormality. Charli Mcrae MD on November 21, 2017 at 10:31 Board Certified Radiologist. This report was verified electronically.
[2017-11-21] MEDS: SODIUM CHLOR 0.9% 1000 ML INJ 1,000 ML IV SCH ×2 (11:27→19:58)
[2017-11-21 11:29] LABS: BILIRUBIN, URINE NEG (NEG); BLOOD, URINE TRACE (NEG); GLUCOSE,URINE NEG (NEG); KETONE, URINE NEG (NEG); NITRITE,URINE POS (NEG); URINE LEUKOCYTE ESTERASE LARGE (NEG)
[2017-11-21 11:31] LABS: AUTOMATED NEUTROPHIL # 4.3 TH/MM3 (1.8-7.7); BASOPHIL % 0.3 % (0.0-2.0); EOSINOPHIL # 0.2 TH/MM3 (0-0.4); EOSINOPHIL % 3.4 % (0.0-4.0); HEMATOCRIT 29.2 % (39.0-51.0); HEMOGLOBIN 9.1 GM/DL (13.0-17.0); LYMPH % 21.6 % (9.0-44.0); LYMPHOCYTE # 1.4 TH/MM3 (1.0-4.8); MEAN CELL VOLUME 92.3 FL (80.0-100.0); MEAN CORPUSCULAR HEMOGLOBIN 28.7 PG (27.0-34.0); MEAN CORPUSCULAR HGB CONC 31.1 % (32.0-36.0); MONO % 7.8 % (0.0-8.0); MONOCYTE # 0.5 TH/MM3 (0-0.9); NEUT % 66.9 % (16.0-70.0); PLATELET COUNT 213 TH/MM3 (150-450); RED BLOOD COUNT 3.16 MIL/MM3 (4.50-5.90); RED CELL DISTRIBUTION WIDTH 18.4 % (11.6-17.2); WHITE BLOOD COUNT 6.4 TH/MM3 (4.0-11.0)
[2017-11-21 11:35] LABS: URINE COLOR YELLOW (YELLW/STRAW)
[2017-11-21 11:36] LABS: BACTERIA, URINE MANY /hpf; SQUAMOUS EPITHELIAL CELL URINE 0-5 /hpf (0-5); WBC, URINE INNUM /hpf (0-5)
[2017-11-21 11:37] LABS: WHITE BLOOD CELL CLUMPS MANY
[2017-11-21 12:05] LABS: ALBUMIN 3.5 GM/DL (3.4-5.0); ALKALINE PHOSPHATASE 78 U/L (45-117); ALT (GPT) 17 U/L (12-78); AST (GOT) 23 U/L (15-37); BICARBONATE 22.7 MEQ/L (21.0-32.0); BLOOD UREA NITROGEN 102 MG/DL (7-18); CALCIUM 8.5 MG/DL (8.5-10.1); CHLORIDE 108 MEQ/L (98-107); GLOMERULAR FILTRATION RATE 5 ML/MIN (>89); GLUCOSE,RANDOM 144 MG/DL (74-106); MAGNESIUM 3.4 MG/DL (1.5-2.5); PHOSPHORUS 6.1 MG/DL (2.5-4.9); SODIUM (NA) 143 MEQ/L (136-145); TOTAL BILIRUBIN ADULT 0.4 MG/DL (0.2-1.0); TOTAL PROTEIN 8.2 GM/DL (6.4-8.2)
[2017-11-21] MEDS ORDERED: INSULIN HUMAN REGULAR 1,000 UNITS/10 ML VIAL IV PUSH ONE (12:15)
[2017-11-21] MEDS ORDERED: DEXTROSE 50% IN WATER 50 ML VIAL(D50) IV PUSH ONE (12:15)
[2017-11-21] MEDS ORDERED: SORBITOL 70% SOLN 30 ML CUP PO ONE (12:15)
[2017-11-21] MEDS ORDERED: SODIUM POLYSTYRENE SULFONATE SUSP 15 GM/60 ML CUP PO ONE ×2 (12:15→16:00)
[2017-11-21] MEDS ORDERED: SODIUM CHLOR 0.9% 1000 ML INJ 1,000 ML IV SCH (12:30)
[2017-11-21 13:01] LABS: OVALOCYTES 1+ (NORMAL)
[2017-11-21] MEDS ORDERED: SODIUM CHLORIDE 0.9% FLUSH 10 ML FLUSH IV FLUSH PRN (14:15)
[2017-11-21] MEDS ORDERED: NALOXONE HCL 0.4 MG/ML AMP IV PUSH PRN (14:15)
[2017-11-21] MEDS ORDERED: ONDANSETRON HCL 4 MG/2 ML VIAL IVP PRN (15:00)
[2017-11-21] MEDS ORDERED: LACTULOSE SYRUP 20 GM/30 ML CUP PO PRN (15:00)
[2017-11-21] MEDS ORDERED: BISACODYL 10 MG SUPP RECTAL PRN (15:00)
--- NOTE | 2017-11-21 15:54 | HHI.HP ---
[facility] Service [facility] Primary Care Physician Non-Staff Admission Diagnosis RENAL FAILURE Diagnoses: Chief Complaint: Lethargic Travel History International Travel<30 Days: No Contact w/Intl Traveler <30 Da: No Traveled to Known Affected Are: No History of Present Illness This patient is an 87-year-old gentleman with known history of end-stage renal disease not treated with renal placement therapy and not on renal medicines due to family choice. Patient had a massive stroke is 9 years ago and has been unable to care for himself. He currently lives in assisted living facility. Today he was brought over for worsening lethargy per the family. For 9 days he' s been increasingly confused with decreased oral intake and increased weakness. He has residual deficits from his stroke including upper and lower extremity deficits and is not independent. The patient has recently been in the hospital. [place] about a month ago for urinary tract infection. Patient was given antibiotics for this and his Mckeon catheter was changed. The patient has been back to his assisted living for about a month without any difficulties until the last week and a half. He has been following up with Dr. Lira however no plans for renal replacement therapy had been initiated and the patient and family have declined in lieu of a DO NOT RESUSCITATE. Since the hospital they [place] fish the family had been attempting home health care for rehabilitation however this is unsuccessful and now they would like to pursue hospice. Patient's potassium at this time 6.7, his magnesium is 3.4 and his phosphorus is 6.1. His chloride is 108. The patient is comfortable without complaints. He is anemic 9.1 without any leukocytosis. His renal function shows a GFR 5. This is chronic per the patient's family and they would not like any further treatment for this. They would like to pursue hospice options Review of Systems Constitutional: COMPLAINS OF: Fatigue, DENIES: Diaphoretic episodes, Fever, Weight gain, Weight loss, Chills, Dizziness, Change in appetite, Night Sweats Endocrine: DENIES: Heat/cold intolerance, Polydipsia, Polyuria, Polyphagia Eyes: DENIES: Blurred vision, Diplopia, Eye inflammation, Eye pain, Vision loss , Photosensitivity, Double Vision Ears, nose, mouth, throat: DENIES: Tinnitus, Hearing loss, Vertigo, Nasal discharge, Oral lesions, Throat pain, Hoarseness, Ear Pain, Running Nose, Epistaxis, Sinus Pain, Toothache, Odynophagia Respiratory: DENIES: Apneas, Cough, Snoring, Wheezing, Hemoptysis, Sputum production, Shortness of breath Cardiovascular: DENIES: Chest pain, Palpitations, Syncope, Dyspnea on Exertion , PND, Lower Extremity Edema, Orthopnea, Claudication Gastrointestinal: DENIES: Abdominal pain, Black stools, Bloody stools, Constipation, Diarrhea, Nausea, Vomiting, Difficulty Swallowing, Anorexia Genitourinary: DENIES: Sexual dysfunction, Urinary frequency, Urinary incontinence, Urgency, Hematuria, Dysuria, Nocturia, Penile Discharge, Testicular Pain, Testicular Swelling Musculoskeletal: DENIES: Joint pain, Muscle aches, Stiffness, Joint Swelling, Back pain, Neck pain Integumentary: DENIES: Abnormal pigmentation, Nail changes, Pruritus, Rash Hematologic/lymphatic: DENIES: Bruising, Lymphadenopathy Immunologic/allergic: DENIES: Eczema, Urticaria Neurologic: COMPLAINS OF: Abnormal gait, Speech Problems, Poor Balance, DENIES : Headache, Localized weakness, Paresthesias, Seizures, Tremor Psychiatric: DENIES: Anxiety, Confusion, Mood changes, Depression, Hallucinations, Agitation, Suicidal Ideation, Homicidal Ideation, Delusions Past Family Social History Past Medical History Hypothyroidism Hyperlipidemia Hypertension End-stage renal disease Prostate disease on chronic Mckeon Previous massive stroke Past Surgical History Cardiac bypass Allergies: Coded Allergies: No Known Allergies (Unverified , 12/28/16) Active Ordered Medications Reviewed in the EMR Family History Does not know and is unable to respond Social History [facility] resident, no tobacco or alcohol dependency Son Marcus is POA Physical Exam Vital Signs Vital Signs Date Time Temp Pulse Resp B/P (MAP) Pulse Ox O2 Delivery O2 Flow Rate FiO2 11/21/17 14:49 11/21/17 14:15 98.0 68 18 135/71 (92) 95 Room Air 11/21/17 13:25 70 17 109/52 (71) 96 Room Air 11/21/17 11:45 85 17 124/59 (80) 98 Room Air 11/21/17 10:30 68 18 133/61 (85) 96 Room Air 11/21/17 09:45 97.6 88 18 119/61 80 95 Physical Exam GENERAL: This is a awake, oriented to name SKIN: No rashes, ecchymoses or lesions. Cool and dry. HEAD: Atraumatic. Normocephalic. No temporal or scalp tenderness. EYES: Pupils equal round and reactive. Extraocular motions intact. No scleral icterus. No injection or drainage. ENT: Nose without bleeding, purulent drainage or septal hematoma. Throat without erythema, tonsillar hypertrophy or exudate. Uvula midline. Airway patent. NECK: Trachea midline. No JVD or lymphadenopathy. Supple, nontender, no meningeal signs. CARDIOVASCULAR: Regular rate and rhythm without murmurs, gallops, or rubs. RESPIRATORY: Clear to auscultation. Breath sounds equal bilaterally. No wheezes , rales, or rhonchi. GASTROINTESTINAL: Abdomen soft, non-tender, nondistended. No hepato-splenomegaly , or palpable masses. No guarding. MUSCULOSKELETAL: Extremities without clubbing, cyanosis, or edema. No joint tenderness, effusion, or edema noted. No calf tenderness. Negative Homans sign bilaterally. NEUROLOGICAL: Awake and alert. Right arm paralysis, a phasic Laboratory Laboratory Tests Test 11/21/17 11:10 11/21/17 11:22 White Blood Count 6.4 Red Blood Count 3.16 Hemoglobin 9.1 Hematocrit 29.2 Mean Corpuscular Volume 92.3 Mean Corpuscular Hemoglobin 28.7 Mean Corpuscular Hemoglobin Concent 31.1 Red Cell Distribution Width 18.4 Platelet Count 213 Mean Platelet Volume 9.0 Neutrophils (%) (Auto) 66.9 Lymphocytes (%) (Auto) 21.6 Monocytes (%) (Auto) 7.8 Eosinophils (%) (Auto) 3.4 Basophils (%) (Auto) 0.3 Neutrophils # (Auto) 4.3 Lymphocytes # (Auto) 1.4 Monocytes # (Auto) 0.5 Eosinophils # (Auto) 0.2 Basophils # (Auto) 0.0 CBC Comment AUTO DIFF Differential Comment AUTO DIFF CONFIRMED Platelet Estimate NORMAL Platelet Morphology Comment NORMAL Ovalocytes 1+ Blood Urea Nitrogen 102 Creatinine 9.70 Random Glucose 144 Total Protein 8.2 Albumin 3.5 Calcium Level 8.5 Phosphorus Level 6.1 Magnesium Level 3.4 Alkaline Phosphatase 78 Aspartate Amino Transf (AST/SGOT) 23 Alanine Aminotransferase (ALT/SGPT) 17 Total Bilirubin 0.4 Sodium Level 143 Potassium Level 6.7 Chloride Level 108 Carbon Dioxide Level 22.7 Anion Gap 12 Estimat Glomerular Filtration Rate 5 Urine Collection Type CLEAN CATCH Urine Color YELLOW Urine Turbidity TURBID Urine pH 7.0 Urine Specific [place] 1.015 Urine Protein 100 Urine Glucose (UA) NEG Urine Ketones NEG Urine Occult Blood TRACE Urine Nitrite POS Urine Bilirubin NEG Urine Leukocyte Esterase LARGE Urine WBC INNUM Urine WBC Clumps MANY Urine Squamous Epithelial Cells 0-5 Urine Bacteria MANY Urine Yeast with Hyphae MOD Microscopic Urinalysis Comment CULTURE INDICATED Date/Time Source Procedure Growth Status 11/21/17 11:20 Blood Peripheral Aerobic Blood Culture Pending Received 11/21/17 11:20 Blood Peripheral Anaerobic Blood Culture Pending Received 11/21/17 11:22 Urine Clean Catch Urine Culture Pending Received Result Diagram: 11/21/17 1110 11/21/17 1110 Imaging Last Impressions Head CT 11/21/17 0957 Signed Impressions: Service Date/Time: November 10:11 - CONCLUSION: Chronic and small vessel ischemic changes without any evidence for acute hemorrhage or mass effect. Danisha Damon MD Chest X-Ray 11/21/17 0957 Signed Impressions: Service Date/Time: November 10:10 - CONCLUSION: 1. Mild chronic appearing interstitial changes. No acute abnormality. Charli Mcrae MD Caprini VTE Risk Assessment Caprini VTE Risk Assessment: Mod/High Risk (score >= 2) Caprini Risk Assessment Model Point Value = 1 Point Value = 2 Point Value = 3 Point Value = 5 Age 41-60 Minor surgery BMI > 25 kg/m2 Swollen legs Varicose veins or History of unexplained or recurrent spontaneous Oral contraceptives or hormone replacement Sepsis (< 1 month) Serious lung disease, including pneumonia (< 1 month) Abnormal pulmonary function Acute myocardial infarction Congestive heart failure (< 1 month) History of inflammatory bowel disease Medical patient at bed rest Age 61-74 Arthroscopic surgery Major open surgery (> 45 min) Laparoscopic surgery (> 45 min) Malignancy Confined to bed (> 72 hours) Immobilizing plaster cast Central venous access Age >= 75 History of VTE Family history of VTE Factor V Leiden Prothrombin [id number] Lupus anticoagulant Anticardiolipin antibodies Elevated serum homocysteine Heparin-induced thrombocytopenia Other congenital or acquired thrombophilia Stroke (< 1 month) Elective arthroplasty Hip, pelvis, or leg fracture Acute spinal cord injury (< 1 month) Prophylaxis Regimen Total Risk Factor Score Risk Level Prophylaxis Regimen 0-1 Low Early ambulation 2 Moderate Order ONE of the following: *Sequential Compression Device (SCD) *Heparin 5000 units SQ BID 3-4 Higher Order ONE of the following medications: *Heparin 5000 units SQ TID *Enoxaparin/Lovenox 40 mg SQ daily (WT < 150 kg, CrCl > 30 mL/min) *Enoxaparin/Lovenox 30 mg SQ daily (WT < 150 kg, CrCl > 10-29 mL/min) *Enoxaparin/Lovenox 30 mg SQ BID (WT < 150 kg, CrCl > 30 mL/min) AND/OR *Sequential Compression Device (SCD) 5 or more Highest Order ONE of the following medications: *Heparin 5000 units SQ TID (Preferred with Epidurals) *Enoxaparin/Lovenox 40 mg SQ daily (WT < 150 kg, CrCl > 30 mL/min) *Enoxaparin/Lovenox 30 mg SQ daily (WT < 150 kg, CrCl > 10-29 mL/min) *Enoxaparin/Lovenox 30 mg SQ BID (WT < 150 kg, CrCl > 30 mL/min) AND *Sequential Compression Device (SCD) Assessment and Plan Problem List: (1) Metabolic encephalopathy ICD Code: G93.41 - Metabolic encephalopathy Plan: Continue secondary to urinary tract infection Patient will continue with Rocephin and follow cultures Couple Denisse due to indwelling catheter (2) Urinary tract infection ICD Code: N39.0 - Urinary tract infection, site not specified Status: Acute Plan: Follow-up Rocephin, cultures pending (3) Hyperkalemia ICD Code: E87.5 - Hyperkalemia Status: Acute Plan: Patient has end-stage renal failure and no plans for renal replacement therapy are indicated We'll attempt Kayexalate and monitor repeat renal function DO NOT RESUSCITATE has been ordered (4) CKD (chronic kidney disease) stage 4, GFR 15-29 ml/min ICD Code: N18.4 - Chronic kidney disease, stage 4 (severe) Status: Acute Plan: Patient is hospice appropriate Family had initially tried home health care at their assisted living but now are interested in recommendations for hospice which we will pursue Physician Certification 2 Midnight Certification Type: Admission for Inpatient Services Order for Inpatient Services The services are ordered in accordance with Medicare regulations or non- Medicare payer requirements, as applicable. In the case of services not specified as inpatient-only, they are appropriately provided as inpatient services in accordance with the 2-midnight benchmark. Estimated LOS (days): 3 3 days is the estimated time the patient will need to remain in the hospital, assuming treatment plan goals are met and no additional complications. Post-Hospital Plan: Evelia Salgado MD Nov 21, 2017 15:54
[2017-11-21] MEDS ORDERED: ACETAMINOPHEN 325 MG TAB PO PRN (16:00)
[2017-11-21] MEDS ORDERED: SODIUM BICARBONATE 650 MG TAB PO SCH (18:00)
[2017-11-21] MEDS: cefTRIAXone INJ 1,000 MG in SODIUM CHLORIDE 0.9% INJ 100 ML IV SCH (18:16)
[2017-11-21] MEDS: DOCUSATE SODIUM 50 MG/SENNA 8.6 MG TAB PO SCH (20:05)
[2017-11-21] MEDS: METOPROLOL TARTRATE 25 MG TAB PO SCH (20:05)
[2017-11-21] MEDS: ATORVASTATIN 10 MG TAB PO SCH (20:05)
[2017-11-21] MEDS: SODIUM CHLORIDE 0.9% FLUSH 10 ML FLUSH IV FLUSH SCH (20:05)
[2017-11-21 20:13] LABS: AUTOMATED NEUTROPHIL # 3.8 TH/MM3 (1.8-7.7); BASOPHIL % 0.2 % (0.0-2.0); EOSINOPHIL # 0.2 TH/MM3 (0-0.4); EOSINOPHIL % 3.2 % (0.0-4.0); HEMATOCRIT 23.5 % (39.0-51.0); HEMOGLOBIN 7.5 GM/DL (13.0-17.0); LYMPH % 23.8 % (9.0-44.0); LYMPHOCYTE # 1.4 TH/MM3 (1.0-4.8); MEAN CELL VOLUME 92.2 FL (80.0-100.0); MEAN CORPUSCULAR HEMOGLOBIN 29.5 PG (27.0-34.0); MEAN PLATELET VOLUME 7.7 FL (7.0-11.0); MONOCYTE # 0.6 TH/MM3 (0-0.9); NEUT % 62.8 % (16.0-70.0); PLATELET COUNT 163 TH/MM3 (150-450); RED BLOOD COUNT 2.55 MIL/MM3 (4.50-5.90); RED CELL DISTRIBUTION WIDTH 18.2 % (11.6-17.2)
[2017-11-21] MEDS ORDERED: MAGNESIUM HYDROXIDE SUSP 30 ML CUP PO PRN (21:00)
[2017-11-21] MEDS ORDERED: SENNOSIDES 8.6 MG TAB PO PRN (21:00)
[2017-11-21 22:15] LABS: BICARBONATE 21.4 MEQ/L (21.0-32.0); CALCIUM 7.6 MG/DL (8.5-10.1); CREATININE 9.2 MG/DL (0.60-1.30)
[2017-11-22] VITALS: BP 125/71; PULSE 77; RESP 18; TEMP 99; O2SAT 93
[2017-11-22] MEDS: SODIUM CHLOR 0.9% 1000 ML INJ 1,000 ML IV SCH ×2 (04:09→16:53)
[2017-11-22] MEDS: LEVOTHYROXINE SODIUM 25 MCG TAB PO SCH (05:23)
[2017-11-22 06:03] LABS: AUTOMATED NEUTROPHIL # 2.8 TH/MM3 (1.8-7.7); BASOPHIL % 0.7 % (0.0-2.0); EOSINOPHIL # 0.2 TH/MM3 (0-0.4); EOSINOPHIL % 3.7 % (0.0-4.0); HEMATOCRIT 23.1 % (39.0-51.0); HEMOGLOBIN 7.4 GM/DL (13.0-17.0); LYMPH % 32.7 % (9.0-44.0); LYMPHOCYTE # 1.8 TH/MM3 (1.0-4.8); MEAN CELL VOLUME 92.4 FL (80.0-100.0); MEAN CORPUSCULAR HEMOGLOBIN 29.6 PG (27.0-34.0); MEAN CORPUSCULAR HGB CONC 32.1 % (32.0-36.0); MEAN PLATELET VOLUME 8.3 FL (7.0-11.0); MONO % 12.2 % (0.0-8.0); MONOCYTE # 0.7 TH/MM3 (0-0.9); NEUT % 50.7 % (16.0-70.0); PLATELET COUNT 157 TH/MM3 (150-450); WHITE BLOOD COUNT 5.5 TH/MM3 (4.0-11.0)
[2017-11-22 06:19] LABS: CALCIUM 7.2 MG/DL (8.5-10.1)
[2017-11-22 06:20] LABS: BICARBONATE 19.5 MEQ/L (21.0-32.0)
[2017-11-22 06:25] LABS: CREATININE 9.1 MG/DL (0.60-1.30)
[2017-11-22 06:39] LABS: CALCIUM-PROTEIN CORRECTED 7.5 MG/DL (8.5-10.1); TOTAL PROTEIN 6.5 GM/DL (6.4-8.2)
[2017-11-22 08:00] VITALS: BP 123/71; PULSE 68; RESP 18; TEMP 95.8; O2SAT 96
[2017-11-22] MEDS: SODIUM BICARBONATE 325 MG TAB PO SCH ×2 (08:28→16:53)
[2017-11-22] MEDS: DOCUSATE SODIUM 50 MG/SENNA 8.6 MG TAB PO SCH ×2 (08:28→21:07)
[2017-11-22] MEDS: ASPIRIN 325 MG TAB PO SCH (08:28)
[2017-11-22] MEDS: TAMSULOSIN HCL 0.4 MG CAP PO SCH (08:29)
[2017-11-22] MEDS: SODIUM CHLORIDE 0.9% FLUSH 10 ML FLUSH IV FLUSH SCH ×2 (08:29→21:06)
[2017-11-22] MEDS: METOPROLOL TARTRATE 25 MG TAB PO SCH ×2 (08:29→21:07)
[2017-11-22] MEDS: amLODIPine BESYLATE 5 MG TAB PO SCH (08:29)
[2017-11-22] MEDS: PARoxetine HCL 20 MG TAB PO SCH (08:29)
[2017-11-22] MEDS: METHYLPHENIDATE HCL 5 MG TAB PO SCH (08:40)
[2017-11-22] MEDS ORDERED: SODIUM POLYSTYRENE SULFONATE SUSP 15 GM/60 ML CUP PO ONE (09:45)
[2017-11-22 11:59] VITALS: BP 116/71; PULSE 61; RESP 18; TEMP 96.6; O2SAT 97
[2017-11-22 16:00] VITALS: BP 119/65; PULSE 68; RESP 18; TEMP 97.1; O2SAT 97
--- NOTE | 2017-11-22 16:06 | HHI.PR ---
Subjective Remarks patient seen today in follow-up for end-stage renal disease and for anemia. Family awaiting hospice conference this afternoon. No change condition patient comfortable Objective Vitals Vital Signs Date Time Temp Pulse Resp B/P (MAP) Pulse Ox O2 Delivery O2 Flow Rate FiO2 11/22/17 11:59 96.6 61 18 116/71 (86) 97 11/22/17 08:00 95.8 68 18 123/71 (88) 96 11/22/17 00:00 99.0 77 18 125/71 (89) 93 11/21/17 20:00 98.7 74 18 146/79 (101) 94 I/O 11/21/17 11/21/17 11/21/17 11/22/17 11/22/17 11/22/17 07:00 15:00 23:00 07:00 15:00 23:00 Intake Total 115 ml 100 ml 240 ml 120 ml Output Total 700 ml 300 ml Balance 115 ml 100 ml -460 ml 120 ml -300 ml Intake Oral 240 ml 120 ml IV Total 115 ml 100 ml Output Urine Total 700 ml 300 ml # Bowel Movements 0 Result Diagram: 11/22/17 0550 11/22/17 0550 Objective Remarks GENERAL: This is a well-nourished, well-developed patient, in no apparent distress. CARDIOVASCULAR: Regular rate and rhythm without murmurs, gallops, or rubs. RESPIRATORY: Clear to auscultation. Breath sounds equal bilaterally. No wheezes , rales, or rhonchi. GASTROINTESTINAL: Abdomen soft, non-tender, nondistended. Normal active bowel sounds MUSCULOSKELETAL: Extremities without clubbing, cyanosis, or edema. NEURO: Oriented to person, mostly nonverbal, moves upper extremities weakly A/P Problem List: (1) Metabolic encephalopathy ICD Code: G93.41 - Metabolic encephalopathy Plan: Improved secondary to urinary tract infection Patient will continue with Rocephin and follow cultures with current gram- negative kimberley Complicated UTI secondary to indwelling catheter (2) Urinary tract infection ICD Code: N39.0 - Urinary tract infection, site not specified Status: Acute Plan: Complicated Follow-up Rocephin for empiric coverage of gram-negative kimberley, cultures pending (3) Hyperkalemia ICD Code: E87.5 - Hyperkalemia Status: Acute Plan: Patient has end-stage renal failure and no plans for renal replacement therapy are indicated We'll attempt Kayexalate (patient intermittently refusing) and monitor repeat renal function DO NOT RESUSCITATE has been ordered (4) CKD (chronic kidney disease) stage 4, GFR 15-29 ml/min ICD Code: N18.4 - Chronic kidney disease, stage 4 (severe) Status: Acute Plan: Patient is hospice appropriate with end-stage renal disease and without plans for treatment (long-standing renal failure) Patient's acidotic hyperkalemia Renal had previously been following the patient but due to no plans for renal replacement therapy Dr. Lira has recommended hospice Family had initially tried home health care at their assisted living but now are interested in recommendations for hospice which we will pursue (5) Anemia ICD Code: D64.9 - Anemia, unspecified Plan: After hydration patient's anemia appears remarkable, patient's family would not like a blood transfusion at this time and little of hospice consult pending They have requested Aranesp be given, had a right explained that the patient has little renal function and will likely need iron evaluation. At this time we 'll continue with discussing plans with hospice prior to further treatment recommendations Discharge Planning Hospice consult pending ([facility]) Patient may need to return to his NURSING HOME under hospice care Evelia Mckeon MD Nov 22, 2017 16:06
[2017-11-22] MEDS: cefTRIAXone INJ 1,000 MG in SODIUM CHLORIDE 0.9% INJ 100 ML IV SCH (16:52)
--- NOTE | 2017-11-22 18:31 | EKG ---
Date Performed: 11/21/2017 Time Performed: 10:05:42 PTAGE: 87 years EKG: Sinus rhythm WITH SINUS ARRHYTHMIA WITH FIRST DEGREE AV BLOCK RIGHT BUNDLE BRANCH BLOCK ABNORMAL ECG PREVIOUS TRACING : 12/28/2016 11.21 DOCTOR: Raine Guerrier Interpretating Date/Time 11/22/2017 18:30:46
[2017-11-22 20:00] VITALS: BP 118/64; PULSE 65; RESP 16; TEMP 96.8; O2SAT 95
[2017-11-22] MEDS: ATORVASTATIN 10 MG TAB PO SCH (21:07)
[2017-11-23] VITALS: BP 136/75; PULSE 73; RESP 15; TEMP 97.3; O2SAT 93
[2017-11-23] MEDS: SODIUM CHLOR 0.9% 1000 ML INJ 1,000 ML IV SCH ×3 (03:20→22:07)
[2017-11-23] MEDS: LEVOTHYROXINE SODIUM 25 MCG TAB PO SCH (05:33)
[2017-11-23 08:00] VITALS: BP 137/67; PULSE 72; RESP 20; TEMP 97.1; O2SAT 95
[2017-11-23] MEDS: amLODIPine BESYLATE 5 MG TAB PO SCH ×2 (09:00→18:00)
[2017-11-23] MEDS: DOCUSATE SODIUM 50 MG/SENNA 8.6 MG TAB PO SCH (09:00)
[2017-11-23 09:39] LABS: AUTOMATED NEUTROPHIL # 4.4 TH/MM3 (1.8-7.7); BASOPHIL % 0.1 % (0.0-2.0); EOSINOPHIL # 0.2 TH/MM3 (0-0.4); EOSINOPHIL % 3.5 % (0.0-4.0); HEMATOCRIT 23.5 % (39.0-51.0); HEMOGLOBIN 7.2 GM/DL (13.0-17.0); LYMPH % 18.8 % (9.0-44.0); LYMPHOCYTE # 1.2 TH/MM3 (1.0-4.8); MEAN CELL VOLUME 95.4 FL (80.0-100.0); MEAN CORPUSCULAR HEMOGLOBIN 29.4 PG (27.0-34.0); MEAN CORPUSCULAR HGB CONC 30.8 % (32.0-36.0); MEAN PLATELET VOLUME 7.1 FL (7.0-11.0); MONO % 8.1 % (0.0-8.0); MONOCYTE # 0.5 TH/MM3 (0-0.9); NEUT % 69.5 % (16.0-70.0); PLATELET COUNT 160 TH/MM3 (150-450); RED BLOOD COUNT 2.46 MIL/MM3 (4.50-5.90); RED CELL DISTRIBUTION WIDTH 18.6 % (11.6-17.2); WHITE BLOOD COUNT 6.3 TH/MM3 (4.0-11.0)
[2017-11-23 09:57] LABS: BICARBONATE 20.7 MEQ/L (21.0-32.0); CALCIUM 6.7 MG/DL (8.5-10.1); CREATININE 8.4 MG/DL (0.60-1.30)
[2017-11-23 10:11] LABS: CALCIUM-PROTEIN CORRECTED 7.2 MG/DL (8.5-10.1)
--- NOTE | 2017-11-23 11:13 | HHI.PR ---
Subjective Remarks Nursing reports that the patient to not take his medications since last night, is refusing them this morning. When this was mentioned to the patient's son, he states that the patient cannot be given multiple medications at once. He likes to take his medications one at a time sitting up with simple water. Son says that he did speak with hospice yesterday but is waiting to hear back from them about certain questions he had regarding which medications he can and cannot be administered under potential hospice care. When informed about the UTI, son states that he does want it treated. Objective Vital Signs Date Time Temp Pulse Resp B/P (MAP) Pulse Ox O2 Delivery O2 Flow Rate FiO2 11/23/17 08:00 97.1 72 20 137/67 (90) 95 11/23/17 00:00 97.3 73 15 136/75 (95) 93 11/22/17 20:00 96.8 65 16 118/64 (82) 95 11/22/17 16:00 97.1 68 18 119/65 (83) 97 11/22/17 11:59 96.6 61 18 116/71 (86) 97 I/O 11/22/17 11/22/17 11/22/17 11/23/17 11/23/17 11/23/17 07:00 15:00 23:00 07:00 15:00 23:00 Intake Total 240 ml 120 ml 1000 ml Output Total 700 ml 300 ml 650 ml Balance -460 ml 120 ml -300 ml 350 ml Intake Oral 240 ml 120 ml IV Total 1000 ml Output Urine Total 700 ml 300 ml 650 ml # Bowel Movements 0 1 3 Result Diagram: 11/23/17 0933 11/23/17932 Objective Remarks Patient lying in bed, when spoken he does open his eyes and wakes up He does follow commands when prompted to take deep breaths which sound clear bilaterally, unlabored breathing otherwise Elderly white male Pale in appearance A/P Assessment and Plan (1) Metabolic encephalopathy likely 2/2 ESRD and UTI waxing and waning secondary to urinary tract infection Patient will continue with Rocephin and follow cultures with current gram- negative kimberley Complicated UTI secondary to indwelling catheter (2) ESBL - will consult ID (3) Hyperkalemia - Patient has end-stage renal failure and no plans for renal replacement therapy are indicated improved w/ Kayexalate dosing; monitor (4) CKD (chronic kidney disease) stage 4, GFR 15-29 ml/min - Patient is hospice appropriate with end-stage renal disease and without plans for treatment (long-standing renal failure) Renal had previously been following the patient but due to no plans for renal replacement therapy Dr. Lira has recommended hospice Family had initially tried home health care at their assisted living but now are interested in recommendations for hospice which we will pursue (5) Anemia - CKD Family is waiting to hear back from hospice about further inquiries about which medications can and cannot be given such as Procrit and antibiotics. Son states that he is willing to pay out of pocket for certain medications if hospice is not going to cover them due to cost issues. In total, the time spent with the patient was over 35 minute of which more than 50% of patient care was spent discussing his or her care and counseling the patient and corresponding caregivers. Td Alcala MD Nov 23, 2017 11:13
[2017-11-23 12:00] VITALS: BP 130/62; PULSE 67; RESP 18; TEMP 97.2; O2SAT 97
[2017-11-23] MEDS: SODIUM BICARBONATE 325 MG TAB PO SCH ×2 (12:03→17:56)
[2017-11-23] MEDS: METOPROLOL TARTRATE 25 MG TAB PO SCH (12:03)
[2017-11-23] MEDS: METHYLPHENIDATE HCL 5 MG TAB PO SCH (12:03)
[2017-11-23] MEDS: TAMSULOSIN HCL 0.4 MG CAP PO SCH (12:03)
[2017-11-23] MEDS: PARoxetine HCL 20 MG TAB PO SCH (12:03)
[2017-11-23] MEDS: SODIUM CHLORIDE 0.9% FLUSH 10 ML FLUSH IV FLUSH SCH ×2 (12:04→20:35)
[2017-11-23] MEDS: ASPIRIN 325 MG TAB PO SCH (12:04)
[2017-11-23 16:00] VITALS: BP 130/65; PULSE 71; RESP 20; TEMP 98.4; O2SAT 95
[2017-11-23] MEDS: cefTRIAXone INJ 1,000 MG in SODIUM CHLORIDE 0.9% INJ 100 ML IV SCH (16:00)
[2017-11-23] MEDS: ATORVASTATIN 10 MG TAB PO SCH (17:56)
[2017-11-23] MEDS ORDERED: MISCELLANEOUS PHARMACY INFORMATION XX PRN ×2 (19:30)
[2017-11-23] MEDS ORDERED: ASP: Documented ESBL, MDR A baumannii or P. aeruginosa PRN (19:30)
--- NOTE | 2017-11-23 19:50 | MB ---
cc: NETO ALCALA MD, FRANKLYN F. MD DATE OF CONSULTATION: 11/23/2017. REASON FOR CONSULTATION: ESBL E. coli urine infection. REQUESTING PHYSICIAN: Dr. Alcala. HISTORY OF PRESENT ILLNESS: This is an 87-year-old white male who was admitted to the hospital with altered mental status on 11/21. He was brought in by paramedics from an assisted living facility. 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 The patient has had a urinary Mckeon catheter for many years and it was replaced approximately one month ago. Part of the workup after admission included a urinalysis that showed innumerable white cells and a large amount of leukocyte esterase. Urine culture came back with Pseudomonas aeruginosa and E. coli ESBL-positive. Both organisms are resistant to quinolones. The patient is afebrile. This consultation is requested for antibiotic management. The patient has chronic kidney disease. His son mentioned that he makes quite a bit of urine, at least 500 mL a day. His white blood cell count is normal. Information is obtained by interviewing the patient's son at bedside and the medical record since the patient tried to do but makes mostly groaning noises. PAST MEDICAL HISTORY: 1. Hypertension. 2. Hypothyroidism. 3. Hyperlipidemia. 4. Chronic kidney disease. 5. Prostatic disease with chronic Mckeon. 6. CVA. 7. Coronary artery bypass graft surgery. ALLERGIES: NO KNOWN DRUG ALLERGIES. MEDICATIONS: 1. Ceftriaxone. 2. Lopressor. 3. Synthroid. 4. Norvasc. 5. Lipitor. 6. Aspirin. 7. Ritalin. 8. Paxil. 9. Flomax. SOCIAL HISTORY: No tobacco. No alcohol. No illicit drugs. FAMILY HISTORY: Noncontributory. REVIEW OF SYSTEMS: Unable to obtain. PHYSICAL EXAMINATION: GENERAL: This is a well-developed male who is in no acute distress. He is very somnolent. VITAL SIGNS: The vital signs include a temperature of 98.4, blood pressure 130/65, respirations 20, heart rate 70. HEAD, EYES, EARS, NOSE, THROAT: Extraocular movements grossly intact. Pupils reactive to light. No icterus. Oropharynx with moist mucosa without lesions. NECK: The neck is supple without adenopathy. LUNGS: Rhonchi at the bases. HEART: Regular S1 and S2 without audible murmur. ABDOMEN: Bowel sounds present, soft, no tenderness appreciated. RECTAL: Not performed. EXTREMITIES: No clubbing or cyanosis or edema. SKIN: No rash. NEUROLOGIC: Unable to fully assess. PSYCHIATRIC: Unable to assess. LABORATORY STUDIES: The patient had a Mckeon catheter in place with clear yellow urine in the Mckeon bag. WBCs 6.3, platelets 160,000, 69% neutrophils, 18 lymphocytes. Creatinine 8.4, BUN 93, estimated GFR 6. IMPRESSION: 1. A urinary tract infection due to Pseudomonas and E. coli ESBL in patient with chronic Mckeon catheter. 2. Chronic kidney disease nonoliguric. RECOMMENDATIONS: 1. Discontinue ceftriaxone. 2. Begin imipenem. 3. Repeat the urine culture in three days to check for clearance and determine whether to continue the imipenem. 4. If the repeat urine culture is negative, the imipenem can be discontinued. Thank you for this consultation. Further recommendations will be given on followup if necessary to follow the patient when the urine culture comes back. Domingo Corral MD FD/JORDAN /7:12 PM /7:25 PM MTDAndrea
[2017-11-23 20:00] VITALS: BP 131/66; PULSE 69; RESP 18; TEMP 98.2; O2SAT 94
[2017-11-23] MEDS: IMIPENEM/CILASTATIN INJ 250 MG in SODIUM CHLORIDE 0.9% INJ 100 ML IV SCH (22:07)
[2017-11-24] VITALS: BP 127/66; PULSE 72; RESP 20; TEMP 97.5; O2SAT 95
[2017-11-24] MEDS: ALPRAZolam 0.5 MG TAB PO PRN ×2 (03:37→21:43)
[2017-11-24] MEDS: LEVOTHYROXINE SODIUM 25 MCG TAB PO SCH (05:58)
[2017-11-24 08:00] VITALS: BP 132/66; PULSE 65; RESP 18; TEMP 97.9; O2SAT 94
[2017-11-24] MEDS: SODIUM CHLOR 0.9% 1000 ML INJ 1,000 ML IV SCH (08:46)
[2017-11-24] MEDS: ASPIRIN 325 MG TAB PO SCH (08:47)
[2017-11-24] MEDS: METHYLPHENIDATE HCL 5 MG TAB PO SCH (08:47)
[2017-11-24] MEDS: SODIUM CHLORIDE 0.9% FLUSH 10 ML FLUSH IV FLUSH SCH ×2 (08:47→20:37)
[2017-11-24] MEDS: METOPROLOL TARTRATE 25 MG TAB PO SCH (08:47)
[2017-11-24] MEDS: PARoxetine HCL 20 MG TAB PO SCH (08:47)
[2017-11-24] MEDS: TAMSULOSIN HCL 0.4 MG CAP PO SCH (08:47)
[2017-11-24] MEDS: IMIPENEM/CILASTATIN INJ 250 MG in SODIUM CHLORIDE 0.9% INJ 100 ML IV SCH ×2 (09:45→21:43)
[2017-11-24] MEDS: SODIUM BICARBONATE 325 MG TAB PO SCH ×2 (09:59→16:58)
--- NOTE | 2017-11-24 11:05 | HHI.PR ---
Subjective Remarks Patient seen and examined today for follow-up on acute renal failure, urinary tract infection. Patient is resting comfortably in bed. Patient denies any complaints. States that he is eating well. Discussed with son at bedside. Notify + of infectious disease recommendations and he is well aware. He does understand that the patient will be staying in the hospital for at least another 5-6 days. The son is concerned that we need to keep monitoring his laboratory studies, he is also would like his father to get Procrit. I notified him that I will contact the fish grader for further recommendations. Objective Vital Signs Date Time Temp Pulse Resp B/P (MAP) Pulse Ox O2 Delivery O2 Flow Rate FiO2 11/24/17 08:00 97.9 65 18 132/66 (88) 94 11/24/17 00:00 97.5 72 20 127/66 (86) 95 11/23/17 20:00 98.2 69 18 131/66 (87) 94 11/23/17 16:00 98.4 71 20 130/65 (86) 95 11/23/17 12:00 97.2 67 18 130/62 (84) 97 I/O 11/23/17 11/23/17 11/23/17 11/24/17 11/24/17 11/24/17 07:00 15:00 23:00 07:00 15:00 23:00 Intake Total 1000 ml 1750 ml 100 ml 120 ml Output Total 650 ml 525 ml 650 ml Balance 350 ml 1225 ml 100 ml -530 ml Intake Oral 750 ml 120 ml IV Total 1000 ml 1000 ml 100 ml Output Urine Total 650 ml 525 ml 650 ml # Bowel Movements 3 0 0 Result Diagram: 11/23/1733 11/23/17932 Imaging Last Impressions Head CT 11/21/17956 Signed Impressions: Service Date/Time: November 10:11 - CONCLUSION: Chronic and small vessel ischemic changes without any evidence for acute hemorrhage or mass effect. Danisha Damon MD Chest X-Ray 11/21/17956 Signed Impressions: Service Date/Time: November 10:10 - CONCLUSION: 1. Mild chronic appearing interstitial changes. No acute abnormality. Charli Mcrae MD Objective Remarks GENERAL: Well-developed, well-nourished, in no acute distress. alert HEENT: Head is normocephalic without any lesions or masses noted. Facial features are symmetric. Eyes: Extraocular muscles are intact. Conjunctivae were clear. EXTREMITIES: Mild upper extremity nonpitting edema, NEUROLOGY: Mood and affect appear appropriate. Cranial nerves II through XII grossly intact. Speech appears be mumbled at times Medications and IVs Current Medications Sodium Chloride 1,000 ml @ 100 mls/hr Q10H IV Last administered on 11/24/17at 08 :46; Start 11/21/17 at 10:00 Sodium Polystyrene Sulfonate (Kayexalate Liq) 30 gm ONCE ONCE PO Last administered on 11/21/17at 12:28; Start 11/21/17 at 12:15; Stop 11/21/17 at 12:17; Status DC Sorbitol (Sorbitol 70% Liq) 30 ml ONCE ONCE PO ; Start 11/21/17 at 12:15; Stop 11/21/17 at 12:18; Status DC Dextrose (D50w (Vial) Inj) 50 ml ONCE ONCE IV PUSH Last administered on at 12:27; Start 11/21/17 at 12:15; Stop 11/21/17 at 12:18; Status DC Insulin Human Regular (NovoLIN R INJ) 5 units ONCE ONCE IV PUSH Last administered on 11/21/17at 12:28; Start 11/21/17 at 12:15; Stop 11/21/17 at 12:17; Status DC Sodium Chloride 1,000 ml @ 125 mls/hr Q8H IV Last administered on 11/21/17at 12: 40; Start 11/21/17 at 12:30; Stop 11/21/17 at 15:44; Status DC Sodium Chloride (NS Flush) 2 ml UNSCH PRN IV FLUSH FLUSH AFTER USING IV ACCESS ; Start 11/21/17 at 14:15 Sodium Chloride (NS Flush) 2 ml BID IV FLUSH Last administered on 11/24/17at 08: 47; Start 11/21/17 at 21:00 Acetaminophen (Tylenol) 650 mg Q4HR PRN PO TEMP > 100.4; Start 11/21/17 at 16:00 Ondansetron HCl (Zofran Inj) 4 mg Q6H PRN IVP NAUSEA OR VOMITING; Start at 15:00 Naloxone HCl (Narcan Inj) 0.4 mg UNSCH PRN IV PUSH SEE LABEL COMMENTS; Start at 14:15 Senna/Docusate Sodium (Jia-Colace) 1 tab BID PO Last administered on 11/22/17at 21:07; Start 11/21/17 at 21:00; Stop 11/23/17 at 12:35; Status DC Magnesium Hydroxide (Milk Of Magnesia Liq) 30 ml Q12HR PRN PO Mild constipation ; Start 11/21/17 at 21:00 Sennosides (Senokot) 17.2 mg Q12HR PRN PO Moderate constipation; Start 11/21/17 at 21:00 Bisacodyl (Dulcolax Supp) 10 mg DAILY PRN RECTAL SEVERE CONSITIPATION; Start at 15:00 Lactulose (Lactulose Liq) 30 ml DAILY PRN PO SEVERE CONSITIPATION; Start at 15:00 Ceftriaxone Sodium 1000 mg/ Sodium Chloride 100 ml @ 200 mls/hr Q24H IV Last administered on 11/22/17at 16:52; Start 11/21/17 at 16:00; Stop 11/23/17 at 19:22; Status DC Sodium Polystyrene Sulfonate (Kayexalate Liq) 15 gm ONCE ONCE PO Last administered on 11/21/17at 18:15; Start 11/21/17 at 16:00; Stop 11/21/17 at 16:01; Status DC Alprazolam (Xanax) 0.5 mg Q6HR PRN PO ANXIETY Last administered on 11/24/17at 03: 37; Start 11/21/17 at 18:00 Amlodipine Besylate (Norvasc) 5 mg DAILY PO Last administered on 11/22/17at 08:29 ; Start 11/22/17 at 09:00; Stop 11/23/17 at 12:35; Status DC Aspirin (Aspirin) 325 mg DAILY PO Last administered on 11/24/17at 08:47; Start at 09:00 Atorvastatin Calcium (Lipitor) 10 mg HS PO Last administered on 11/22/17at 21:07 ; Start 11/21/17 at 21:00; Stop 11/23/17 at 12:35; Status DC Levothyroxine Sodium (Synthroid) 25 mcg DAILY@0600 PO Last administered on 05:23; Start 11/22/17 at 06:00; Stop 11/23/17 at 12:35; Status DC Methylphenidate HCl (Ritalin Ir) 5 mg DAILY PO Last administered on 11/24/17at 08 :47; Start 11/22/17 at 09:00 Metoprolol Tartrate (Lopressor) 25 mg BID PO Last administered on 11/23/17at 12: 03; Start 11/21/17 at 21:00; Stop 11/23/17 at 12:35; Status DC Paroxetine HCl (Paxil) 20 mg DAILY PO Last administered on 11/24/17at 08:47; Start 11/22/17 at 09:00 Sodium Bicarbonate (Sodium Bicarbonate) 650 mg BIDPC PO Last administered on 11/21/17at 18:14; Start 11/21/17 at 18:00; Stop 11/22/17 at 07:06; Status DC Tamsulosin HCl (Flomax) 0.4 mg DAILY PO Last administered on 11/24/17at 08:47; Start 11/22/17 at 09:00 Sodium Bicarbonate (Sodium Bicarbonate) 650 mg BIDPC PO Last administered on 11/24/17at 09:59; Start 11/22/17 at 09:00 Sodium Polystyrene Sulfonate (Kayexalate Liq) 15 gm ONCE ONCE PO Last administered on 11/22/17at 11:06; Start 11/22/17 at 09:45; Stop 11/22/17 at 10:30; Status DC Amlodipine Besylate (Norvasc) 5 mg DAILY@1800 PO Last administered on 11/23/17at 18:00; Start 11/23/17 at 18:00 Atorvastatin Calcium (Lipitor) 10 mg DAILY@1800 PO Last administered on at 17:56; Start 11/23/17 at 18:00 Levothyroxine Sodium (Synthroid) 25 mcg DAILY@0600 PO Last administered on at 05:58; Start 11/24/17 at 06:00 Metoprolol Tartrate (Lopressor) 25 mg DAILY PO Last administered on 11/24/17at 08 :47; Start 11/24/17 at 09:00 Miscellaneous Medication (ASP Crit: Doc ESBL, MDR A baumannii or P aer) 1 UNSCH X1 PRN .XX PHARMACY DOCUMENTATION; Start 11/23/17 at 19:30; Stop 11/24/17 at 19: 29 Miscellaneous Medication ([facility] 1 UNSCH X1 PRN XX PHARMACY DOCUMENTATION; Start 11/23/17 at 19:30; Stop 11/24/17 at 19:29 Imipenem/ Cilastatin Sodium 250 mg/Sodium Chloride 100 ml @ 200 mls/hr Q12H IV Last administered on 11/24/17at 09:45; Start 11/23/17 at 22:00 Miscellaneous Medication ([facility]) 1 UNSCH X1 PRN XX PHARMACY DOCUMENTATION; Start 11/23/17 at 19:30; Stop 11/24/17 at 19:29 A/P Assessment and Plan Metabolic encephalopathy Likely secondary to end-stage renal disease, urinary tract infection Continue monitor neurological function and mentation Acute on chronic kidney disease stage V With associated complications of encephalopathy, hyperkalemia, hypermagnesemia, hyperphosphatemia, hypocalcemia, metabolic acidosis Patient will require to have dialysis for to have any form of positive outcomes Family does not want pursue dialysis at this time Hospice consulted, however family still wants specific aggressive measures that hospice cannot provide. Hospice was declined Complicated urinary tract infection associated with indwelling Mckeon, encephalopathy Urine culture with Pseudomonas and ESBL positive Escherichia coli Infectious disease consulted for recommendations Patient was started on imipenem infectious disease recommending repeat culture in 3 days and may discontinue imipenem if cultures are negative for ESBL Chronic anemia secondary to chronic kidney disease Family requesting Procrit administration Will consult nephrology for recommendations and management Hypertension, hyperlipidemia, Hypothyroidism, history of CVA, benign prostatic hypertrophy Home medications have been continued at specific times that family is requesting DVT prevention Sequential compression devices Discharge disposition: Rather complicated situation with patient being hospice appropriate. Family has met with hospice and still has specific aggressive measures that they aren't wanting to be done. However hospice cannot provide those for him at this time. Hospice was declined. However family and [facility] are trying to arrange home health care through their services at the [facility]. [place] in the family are working together to try to make arrangements, provide medications of the family still requested to be given. Palliative care has been consulted to help with goals of care. (1) Metabolic encephalopathy likely 2/2 ESRD and UTI waxing and waning secondary to urinary tract infection Patient will continue with Rocephin and follow cultures with current gram- negative kimberley Complicated UTI secondary to indwelling catheter (2) ESBL - will consult ID (3) Hyperkalemia - Patient has end-stage renal failure and no plans for renal replacement therapy are indicated improved w/ Kayexalate dosing; monitor (4) CKD (chronic kidney disease) stage 4, GFR 15-29 ml/min - Patient is hospice appropriate with end-stage renal disease and without plans for treatment (long-standing renal failure) Renal had previously been following the patient but due to no plans for renal replacement therapy Dr. Lira has recommended hospice Family had initially tried home health care at their assisted living but now are interested in recommendations for hospice which we will pursue (5) Anemia - CKD Family is waiting to hear back from hospice about further inquiries about which medications can and cannot be given such as Procrit and antibiotics. Son states that he is willing to pay out of pocket for certain medications if hospice is not going to cover them due to cost issues. In total, the time spent with the patient was over 35 minute of which more than 50% of patient care was spent discussing his or her care and counseling the patient and corresponding caregivers. Td Alcala MD Nov 23, 2017 11:13 <Electronically signed by Td Alcala MD> 11/24/17 0800 Discharge Planning At least 5 more days waiting for cultures and antibiotics. The plans are to return to [facility] with winfred to provide home health care Nirav Cooley Nov 24, 2017 11:04
[2017-11-24 12:00] VITALS: BP 132/73; PULSE 63; RESP 18; TEMP 96.9; O2SAT 95
[2017-11-24 16:00] VITALS: BP 143/63; PULSE 68; RESP 20; TEMP 97.6; O2SAT 95
[2017-11-24] MEDS: ATORVASTATIN 10 MG TAB PO SCH (16:58)
[2017-11-24] MEDS: amLODIPine BESYLATE 5 MG TAB PO SCH (16:58)
[2017-11-24] MEDS ORDERED: EPOETIN ALFA 20,000 UNITS/ML VIAL SQ ONE (18:15)
[2017-11-24] MEDS ORDERED: Epoetin Alfa Inj SQ (18:18)
--- NOTE | 2017-11-24 18:28 | PD.CONS ---
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 He was growing Pseudomonas and Escherichia coli which is ESBL positive, patient is getting and imipenem, he is alert son states that he has been eating better. He do not want him to undergo dialysis, but wanted his anemia to be treated with Procrit. I have been consulted to manage this Review of Systems ROS Limitations: Clinical Condition Past Family Social History Allergies: Coded Allergies: No Known Allergies (Unverified , 12/28/16) Past Medical History End-stage renal disease on conservative management according to son he do not wish to subject him to undergo hemodialysis #2 CVA APHASIA Hypertension Generalized weakness UTI Past Surgical History Hip replacement CABG Reported Medications Reported Meds & Active Scripts Active [Epoetin Tony Inj] 90004 UNITS/ML Inj 20,000 Units SQ Q7D 30 Days Reported Alprazolam 0.5 Mg Tab 0.5 Mg PO Q6H PRN Methylphenidate IR (Methylphenidate HCl) 5 Mg Tab 5 Mg PO DAILY Tamsulosin (Tamsulosin HCl) 0.4 Mg Cap 0.4 Mg PO DAILY Sodium Bicarbonate 650 Mg Tab 650 Mg PO BIDPC Paroxetine (Paroxetine HCl) 20 Mg Tab 20 Mg PO DAILY Metoprolol Tartrate 25 Mg Tab 25 Mg PO BID Levothyroxine (Levothyroxine Sodium) 25 Mcg Tab 25 Mcg PO DAILY Atorvastatin (Atorvastatin Calcium) 10 Mg Tab 10 Mg PO HS Aspirin 325 Mg Tab 325 Mg PO DAILY Amlodipine (Amlodipine Besylate) 5 Mg Tab 5 Mg PO DAILY Active Ordered Medications Current Medications Medications (Trade) Dose Ordered Sig/Darryl Route Start Time Stop Time Status Last Admin Sodium Chloride 1,000 ml @ 42 mls/hr [id number] IV 11/21/17 10:00 11/24/17 08:46 (NS Flush) 2 ml UNSCH PRN IV FLUSH 11/21/17 14:15 (NS Flush) 2 ml BID IV FLUSH 11/21/17 21:00 11/24/17 08:47 (Tylenol) 650 mg Q4HR PRN PO 11/21/17 16:00 (Zofran Inj) 4 mg Q6H PRN IVP 11/21/17 15:00 (Narcan Inj) 0.4 mg UNSCH PRN IV PUSH 11/21/17 14:15 (Milk Of Magnesia Liq) 30 ml Q12HR PRN PO 11/21/17 21:00 (Senokot) 17.2 mg Q12HR PRN PO 11/21/17 21:00 (Dulcolax Supp) 10 mg DAILY PRN RECTAL 11/21/17 15:00 (Lactulose Liq) 30 ml DAILY PRN PO 11/21/17 15:00 (Xanax) 0.5 mg Q6HR PRN PO 11/21/17 18:00 11/24/17 03:37 (Aspirin) 325 mg DAILY PO 11/22/17 09:00 11/24/17 08:47 (Ritalin Ir) 5 mg DAILY PO 11/22/17 09:00 11/24/17 08:47 (Paxil) 20 mg DAILY PO 11/22/17 09:00 11/24/17 08:47 (Flomax) 0.4 mg DAILY PO 11/22/17 09:00 11/24/17 08:47 (Sodium Bicarbonate) 650 mg BIDPC PO 11/22/17 09:00 11/24/17 16:58 (Norvasc) 5 mg DAILY@1800 PO 11/23/17 18:00 11/24/17 16:58 (Lipitor) 10 mg DAILY@1800 PO 11/23/17 18:00 11/24/17 16:58 (Synthroid) 25 mcg DAILY@0600 PO 11/24/17 06:00 11/24/17 05:58 (Lopressor) 25 mg DAILY PO 11/24/17 09:00 11/24/17 08:47 (ASP Crit: Doc ESBL, MDR A baumannii or P aer) 1 UNSCH X1 PRN .XX 11/23/17 19:30 11/24/17 19:29 ([facility]) 1 UNSCH X1 PRN XX 11/23/17 19:30 11/24/17 19:29 Imipenem/ Cilastatin Sodium 250 mg/Sodium Chloride 100 ml @ 200 mls/hr Q12H IV 11/23/17 22:00 11/24/17 09:45 ([facility]) 1 UNSCH X1 PRN XX 11/23/17 19:30 11/24/17 19:29 (Epogen Inj) 20,000 units ONCE ONCE SQ 11/24/17 18:15 11/24/17 18:16 UNV Family History Noncontributory Social History Denies smoking or alcohol use resident of [facility] Physical Exam Vital Signs Vital Signs Date Time Temp Pulse Resp B/P (MAP) Pulse Ox O2 Delivery O2 Flow Rate FiO2 11/24/17 16:00 97.6 68 20 143/63 (89) 95 11/24/17 12:00 96.9 63 18 132/73 (92) 95 11/24/17 08:00 97.9 65 18 132/66 (88) 94 11/24/17 00:00 97.5 72 20 127/66 (86) 95 11/23/17 20:00 98.2 69 18 131/66 (87) 94 Physical Exam GENERAL: Well-nourished, well-developed patient. SKIN: Warm and dry. HEAD: Normocephalic. EYES: No scleral icterus. No injection or drainage. NECK: Supple, trachea midline. No JVD or lymphadenopathy. CARDIOVASCULAR: Regular rate and rhythm without murmurs, gallops, or rubs. RESPIRATORY: Breath sounds equal bilaterally. No accessory muscle use. GASTROINTESTINAL: Abdomen soft, non-tender, nondistended. EXTREMITIES: No cyanosis, or edema. NEUROLOGICAL: Awake, alert, Aphasia And left tanya-plegia Laboratory Date/Time Source Procedure Growth Status 11/21/17 11:20 Blood Peripheral Aerobic Blood Culture - Preliminary NO GROWTH IN 3 DAYS Resulted 11/21/17 11:20 Blood Peripheral Anaerobic Blood Culture - Preliminary NO GROWTH IN 3 DAYS Resulted 11/23/17 05:50 Stool Stool Stool Occult Blood (DONAVAN) - Final HEMOCCULT NEGATIVE Complete 11/21/17 11:22 Urine Clean Catch Urine Culture - Final Pseudomonas Aeruginosa Escherichia Coli Esbl Positive Complete Result Diagram: 11/23/1793211/23/17932 Imaging Last Impressions Head CT 11/21/17956 Signed Impressions: Service Date/Time: November 10:11 - CONCLUSION: Chronic and small vessel ischemic changes without any evidence for acute hemorrhage or mass effect. Danisha Damon MD Chest X-Ray 11/21/1725 Signed Impressions: Service Date/Time: November 10:10 - CONCLUSION: 1. Mild chronic appearing interstitial changes. No acute abnormality. Charli Mcrae MD Assessment and Plan Problem List: (1) ESRD (end stage renal disease) on dialysis ICD Codes: N18.6 - End stage renal disease; Z99.2 - Dependence on renal dialysis Plan: Patient has ESRD and has been managed conservatively, family do not wish to subject him to undergo hemodialysis due to advanced age He also has disability and hemiplegia from the stroke He is passing urine At this point I have ordered Procrit 20,000 subcutaneous 1 and once a week this can be followed as an outpatient We discharged to [facility] with hospice helping in his care. Agree with current conservative approach given above family wishes. I will follow him as an outpatient. (2) Hypertension ICD Codes: I10 - Essential (primary) hypertension Plan: Continue to monitor (3) Metabolic acidosis ICD Codes: E87.2 - Acidosis Plan: Due to renal failure and UTI (4) Urinary tract infection ICD Codes: N39.0 - Urinary tract infection, site not specified Status: Acute Plan: On imipenem (5) Anemia ICD Codes: D64.9 - Anemia, unspecified Status: Chronic Plan: Procrit ordered Problem Qualifiers (1) Hypertension: Qualified Codes: I10 - Essential (primary) hypertension (2) Anemia: Qualified Codes: N18.5 - Chronic kidney disease, stage 5; D63.1 - Anemia in chronic kidney disease Leonard Lira MD Nov 24, 2017 18:28
[2017-11-24 20:00] VITALS: BP 141/78; PULSE 69; RESP 20; TEMP 97.7; O2SAT 97
[2017-11-25] VITALS (8 sets, daily range): BP systolic 123–162; BP diastolic 57–78; PULSE 69–83; RESP 16–20; TEMP 96.8–99.2; O2SAT 92–95
[2017-11-25] MEDS: SODIUM CHLOR 0.9% 1000 ML INJ 1,000 ML IV SCH ×2 (04:26→17:54)
[2017-11-25 05:27] LABS: AUTOMATED NEUTROPHIL # 2.2 TH/MM3 (1.8-7.7); BASOPHIL % 0.3 % (0.0-2.0); EOSINOPHIL # 0.2 TH/MM3 (0-0.4); EOSINOPHIL % 6.5 % (0.0-4.0); LYMPH % 22.8 % (9.0-44.0); LYMPHOCYTE # 0.9 TH/MM3 (1.0-4.8); MEAN CELL VOLUME 92.7 FL (80.0-100.0); MEAN CORPUSCULAR HEMOGLOBIN 28.9 PG (27.0-34.0); MEAN CORPUSCULAR HGB CONC 31.1 % (32.0-36.0); MEAN PLATELET VOLUME 8.1 FL (7.0-11.0); MONO % 13.6 % (0.0-8.0); MONOCYTE # 0.5 TH/MM3 (0-0.9); NEUT % 56.8 % (16.0-70.0); PLATELET COUNT 131 TH/MM3 (150-450); RED BLOOD COUNT 2.37 MIL/MM3 (4.50-5.90); RED CELL DISTRIBUTION WIDTH 17.2 % (11.6-17.2); WHITE BLOOD COUNT 3.8 TH/MM3 (4.0-11.0)
[2017-11-25 05:34] LABS: HEMOGLOBIN 6.8 GM/DL (13.0-17.0)
[2017-11-25 05:46] LABS: BICARBONATE 18.5 MEQ/L (21.0-32.0); CALCIUM 6.9 MG/DL (8.5-10.1); CREATININE 7.7 MG/DL (0.60-1.30); MAGNESIUM 2.3 MG/DL (1.5-2.5); PHOSPHORUS 5.3 MG/DL (2.5-4.9)
[2017-11-25] MEDS: LEVOTHYROXINE SODIUM 25 MCG TAB PO SCH (06:12)
[2017-11-25] MEDS ORDERED: SODIUM CHLOR 0.9% 250 ML INJ 250 ML IV ONE (06:15)
[2017-11-25 07:34] LABS: TOTAL PROTEIN 6.1 GM/DL (6.4-8.2)
[2017-11-25 07:41] LABS: CALCIUM-PROTEIN CORRECTED 7.4 MG/DL (8.5-10.1)
[2017-11-25] MEDS: SODIUM CHLORIDE 0.9% FLUSH 10 ML FLUSH IV FLUSH SCH ×2 (08:40→21:00)
[2017-11-25] MEDS: METHYLPHENIDATE HCL 5 MG TAB PO SCH (08:41)
[2017-11-25] MEDS: TAMSULOSIN HCL 0.4 MG CAP PO SCH (08:41)
[2017-11-25] MEDS: METOPROLOL TARTRATE 25 MG TAB PO SCH (08:41)
[2017-11-25] MEDS: PARoxetine HCL 20 MG TAB PO SCH (08:41)
[2017-11-25] MEDS: SODIUM BICARBONATE 325 MG TAB PO SCH ×2 (08:41→17:18)
[2017-11-25] MEDS: ASPIRIN 325 MG TAB PO SCH (08:42)
--- NOTE | 2017-11-25 10:29 | HHI.NPPN ---
Subjective History of Present Illness 87 year old with ESRD Anemia, UTI Additional Remarks pt with Left hemiplegia aphasia Objective Data Data Vital Signs Date Time Temp Pulse Resp B/P (MAP) Pulse Ox O2 Delivery O2 Flow Rate FiO2 11/25/17 08:00 98.2 73 17 123/57 (79) 92 11/25/17 00:00 98.4 78 20 150/78 (102) 95 11/24/17 20:00 97.7 69 20 141/78 (99) 97 11/24/17 16:00 97.6 68 20 143/63 (89) 95 11/24/17 12:00 96.9 63 18 132/73 (92) 95 -: 11/25/17 0450 11/25/17 0450 Physical Exam General Appearance: Well Developed Pulmonary Resp Exam: Clear Bilaterally Cardiology CV Exam: Regular Gastrointestinal/Abdomen GI Exam: Soft, Non-Tender Extremeties Extremities Exam: No Edema Assessment/Plan Problem List: (1) ESRD (end stage renal disease) on dialysis ICD Codes: N18.6 - End stage renal disease; Z99.2 - Dependence on renal dialysis Plan: Patient has ESRD and has been managed conservatively, family do not wish to subject him to undergo hemodialysis due to advanced age He also has disability and hemiplegia from the stroke He is passing urine Hb low despite Procrit he will get PRBC added PhosLo with meals to lower PO4 and supply Ca as well out pt follow up with hospice as family wishes no dialysis (2) Hypertension ICD Codes: I10 - Essential (primary) hypertension Plan: Continue to monitor (3) Metabolic acidosis ICD Codes: E87.2 - Acidosis Plan: Due to renal failure and UTI (4) Urinary tract infection ICD Codes: N39.0 - Urinary tract infection, site not specified Status: Acute Plan: On imipenem (5) Anemia ICD Codes: D64.9 - Anemia, unspecified Status: Chronic Plan: Procrit ordered Problem Qualifiers (1) Hypertension: Qualified Codes: I10 - Essential (primary) hypertension (2) Anemia: Qualified Codes: N18.5 - Chronic kidney disease, stage 5; D63.1 - Anemia in chronic kidney disease Leonard Lira MD Nov 25, 2017 10:29
--- NOTE | 2017-11-25 10:58 | HHI.PR ---
Subjective Remarks Patient seen and examined today for follow-up on acute renal failure, urinary tract infection. Patient is resting comfortably in bed. Patient denies any complaints. Vital signs are stable, afebrile Objective Vital Signs Date Time Temp Pulse Resp B/P (MAP) Pulse Ox O2 Delivery O2 Flow Rate FiO2 11/25/17 08:00 98.2 73 17 123/57 (79) 92 11/25/17 00:00 98.4 78 20 150/78 (102) 95 11/24/17 20:00 97.7 69 20 141/78 (99) 97 11/24/17 16:00 97.6 68 20 143/63 (89) 95 11/24/17 12:00 96.9 63 18 132/73 (92) 95 I/O 11/24/17 11/24/17 11/24/17 11/25/17 11/25/17 11/25/17 07:00 15:00 23:00 07:00 15:00 23:00 Intake Total 100 ml 1970 ml 740 ml 635 ml Output Total 1200 ml 150 ml 850 ml Balance 100 ml 770 ml 590 ml -215 ml Intake Oral 870 ml 350 ml 120 ml IV Total 100 ml 1100 ml 390 ml 515 ml Output Urine Total 1200 ml 150 ml 850 ml # Bowel Movements 0 2 0 Result Diagram: 11/25/170 11/25/17 045 Objective Remarks GENERAL: Well-developed, well-nourished, in no acute distress. alert HEENT: Head is normocephalic without any lesions or masses noted. Facial features are symmetric. Eyes: Extraocular muscles are intact. Conjunctivae were clear. CARDIAC: Regular rhythm regular rate, S1/S2, no murmurs gallops or rubs PULMONOLOGY: Clear to auscultation bilaterally, no wheeze, rhonchi, or Rales. No use of the session muscles on inspiration or expiration EXTREMITIES: Mild upper extremity nonpitting edema, NEUROLOGY: Mood and affect appear appropriate. Cranial nerves II through XII grossly intact. 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 Hospice was declined Nephrology consulted for recommendations Complicated urinary tract infection associated with indwelling Mckeon, encephalopathy Urine culture with Pseudomonas and ESBL positive Escherichia coli Infectious disease consulted for recommendations Patient continued on imipenem infectious disease recommending repeat culture in 3 days and may discontinue imipenem if cultures are negative for ESBL Chronic anemia secondary to chronic kidney disease Family requesting Procrit administration Nephrology evaluated patient and indicated that patient may have Procrit weekly. One dose was given yesterday. Nephrology indicate patient can have outpatient Procrit with CBC monitor weekly Hypertension, hyperlipidemia, Hypothyroidism, history of CVA, benign prostatic hypertrophy Home medications have been continued at specific times that family is requesting DVT prevention Sequential compression devices Discharge disposition: Rather complicated situation with patient being hospice appropriate. Family has met with hospice and still has specific aggressive measures that they aren't wanting to be done. However hospice cannot provide those for him at this time. Hospice was declined. However family and [facility] are trying to arrange home health care through their services at the [facility]. [place] in the family are working together to try to make arrangements, provide medications of the family still requested to be given. Palliative care has been consulted to help with goals of care. Discharge Planning At least 4 more days waiting for cultures and antibiotics. The plans are to return to [facility] with [facility] to provide home health care Nirav Cooley Nov 25, 2017 10:58
[2017-11-25] MEDS: IMIPENEM/CILASTATIN INJ 250 MG in SODIUM CHLORIDE 0.9% INJ 100 ML IV SCH ×2 (11:26→21:56)
--- NOTE | 2017-11-25 12:35 | PD.CONS ---
Consult Service Palliative Care Consult Requested By Dr. Mckeon Primary Care Physician Non-Staff Reason for Consultation a. To assist with evaluation and management of symptoms including: bladder spasms, confusion b. To assist medical decision maker(s) with: better understanding of current medical conditions; weighing benefits/burdens of medical treatment options; making medical treatment decisions. HPI History of Present Illness This 87-year-old male presented to the ED 11/21/17 via EMS from his HALF-WAY. He was reported to be more confused that day than usual. 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 He was normally able to feed himself unable to the day of presentation. Known history of renal insufficiency, electrolyte imbalance, with a prior admission to [facility] about one month ago possibly for UTI. he required a urologist to insert Mckeon catheter with some difficulty. He follows with Dr. Lira for renal. Son reported in the past UTIs with resistant organisms. * ED course: CT brain with chronic and small vessel ischemic changes no acute process.+ Encephalomalacia left basal ganglia which had been noted on previous scan. Sodium 123, potassium 6.7. BUN 102/creatinine 9.7. Prior creatinine from prior admission 5.8. UA positive UTI, culture pending. Received Kayexalate, D50, insulin. Son reports he is POA and is adamant patient does not want dialysis. Nephrology advise that under the circumstances does not have other treatment to offer and recommends palliative care. Patient's son elected DNR and possibly interested in talking with hospice. * ID consulted for ESBL Escherichia coli urine infection; urine positive Pseudomonas and Escherichia coli ESBL patient with chronic Mckeon catheter. Discontinue ceftriaxone added imipenem. Repeat urine in 3 days to check for clearance, to determine whether to continue imipenem. If repeat urine negative and imipenem to be DC'd. * Nephrology consulted: Patient's son does not wish for him to undergo dialysis however does want chronic anemia treated with Procrit. Nephrology recommends Procrit once weekly outpatient patient okay [facility] with hosp[facility] services. * 11/25/17 Hemoglobin downtrending 6.8, ordered for transfusion 1 unit RBC. ( Hemoccult -11/23) blood culture no growth 4 days. Family apparently met with [facility] and declined their services to pursue aggressive tx. Palliative care was consulted to assist with clarification of goals of treatment. Patient seen in room son at bedside. Patient is awake watching television. He is partially oriented oriented to his son and hospitalization, knows he is here to receive medicine, though is not able to tell me the date or does not seem to understand medical illness etc. Speech is quite garbled and difficult to understand, significant aphasia when he can't express his thoughts he appears frustrated and defers to his son. Son indicates he is generally fairly cognitively sharp though some mild confusion. He has chronic aphagia. Son reports has had ST evaluations and not had any issues w dysphagia, and tolerates PO well. Function/Cognitive Trajectory Lives in an HALF-WAY. 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 Son indicates he is generally fairly cognitively sharp though some mild confusion. He has chronic aphagia. Son reports has had ST evaluations and not had any issues w dysphagia, and tolerates PO well- no modification required. . Review of Systems ROS Limitations: Language Barrier, Poor Historian (+ aphasia) Constitutional: DENIES: Change in appetite, Pain Ears, nose, mouth, throat: DENIES: Oral lesions, Throat pain Respiratory: DENIES: Cough, Sputum production, Shortness of breath Cardiovascular: DENIES: Chest pain, Dyspnea on Exertion, Lower Extremity Edema Gastrointestinal: DENIES: Abdominal pain, Constipation, Diarrhea, Nausea, Vomiting, Difficulty Swallowing Genitourinary: DENIES: Dysuria Musculoskeletal: DENIES: Joint pain Integumentary: DENIES: Rash Neurologic: COMPLAINS OF: Localized weakness (hx rt hemiparesis) Psychiatric: COMPLAINS OF: Confusion (increased confusion x few days) Past Family Social History Coded Allergies: No Known Allergies (Unverified , 12/28/16) Past Medical History Hypothyroidism Hyperlipidemia Hypertension End-stage renal disease Prostate disease on chronic Mckeon Significant /severe CVA 6 yr ago . Past Surgical History Cardiac bypass Hip replacement . Reported Medications Alprazolam 0.5 Mg Tab 0.5 Mg PO Q6H PRN Methylphenidate IR (Methylphenidate HCl) 5 Mg Tab 5 Mg PO DAILY Tamsulosin (Tamsulosin HCl) 0.4 Mg Cap 0.4 Mg PO DAILY Sodium Bicarbonate 650 Mg Tab 650 Mg PO BIDPC Paroxetine (Paroxetine HCl) 20 Mg Tab 20 Mg PO DAILY Metoprolol Tartrate 25 Mg Tab 25 Mg PO BID Levothyroxine (Levothyroxine Sodium) 25 Mcg Tab 25 Mcg PO DAILY Atorvastatin (Atorvastatin Calcium) 10 Mg Tab 10 Mg PO HS Aspirin 325 Mg Tab 325 Mg PO DAILY Amlodipine (Amlodipine Besylate) 5 Mg Tab 5 Mg PO DAILY . Current Medications Medications (Trade) Dose Ordered Sig/Darryl Route Start Time Stop Time Status Last Admin Sodium Chloride 1,000 ml @ 42 mls/hr [id number] IV 11/21/17 10:00 11/25/17 04:26 (NS Flush) 2 ml UNSCH PRN IV FLUSH 11/21/17 14:15 (NS Flush) 2 ml BID IV FLUSH 11/21/17 21:00 11/24/17 20:37 (Tylenol) 650 mg Q4HR PRN PO 11/21/17 16:00 (Zofran Inj) 4 mg Q6H PRN IVP 11/21/17 15:00 (Narcan Inj) 0.4 mg UNSCH PRN IV PUSH 11/21/17 14:15 (Milk Of Magnesia Liq) 30 ml Q12HR PRN PO 11/21/17 21:00 (Senokot) 17.2 mg Q12HR PRN PO 11/21/17 21:00 (Dulcolax Supp) 10 mg DAILY PRN RECTAL 11/21/17 15:00 (Lactulose Liq) 30 ml DAILY PRN PO 11/21/17 15:00 (Xanax) 0.5 mg Q6HR PRN PO 11/21/17 18:00 11/24/17 21:43 (Aspirin) 325 mg DAILY PO 11/22/17 09:00 11/25/17 08:42 (Ritalin Ir) 5 mg DAILY PO 11/22/17 09:00 11/25/17 08:41 (Paxil) 20 mg DAILY PO 11/22/17 09:00 11/25/17 08:41 (Flomax) 0.4 mg DAILY PO 11/22/17 09:00 11/25/17 08:41 (Sodium Bicarbonate) 650 mg BIDPC PO 11/22/17 09:00 11/25/17 08:41 (Norvasc) 5 mg DAILY@1800 PO 11/23/17 18:00 11/24/17 16:58 (Lipitor) 10 mg DAILY@1800 PO 11/23/17 18:00 11/24/17 16:58 (Synthroid) 25 mcg DAILY@0600 PO 11/24/17 06:00 11/25/17 06:12 (Lopressor) 25 mg DAILY PO 11/24/17 09:00 11/25/17 08:41 Imipenem/ Cilastatin Sodium 250 mg/Sodium Chloride 100 ml @ 200 mls/hr Q12H IV 11/23/17 22:00 11/25/17 11:26 (Epogen Inj) 20,000 units Q7D SQ 12/01/17 18:15 Sodium Chloride 250 ml @ 15 mls/hr ONCE ONCE IV 11/25/17 06:15 11/25/17 22:54 (Phoslo) 1,334 mg TID PO 11/25/17 13:00 Family History Family history of hypertension per EMR . Substance Use Tobacco: None per EMR Alcohol: None per EMR Prescription med abuse: None per EMR Illicits: None per EMR . Psychosocial History , 1.5 yr ago, was pt primary caregiver until that time. Pt moved to [place] from [facility], in October 2016 to live nearer his son, as his son was assisting w all of his care arrangements etc. 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 . Spiritual/Cultural Factors Christianity , would be open to Rabbi visitation if available. Living Will: Completed, but not made available Health Care Surrogate: Completed, but not made available Durable Power of Painter Interior Finish: Completed, but not made available Ethical and Legal Issues Patient is unable to fully make all of his own decisions though may participate in shared decision-making. Son reports that he is designated surrogate/POA though we do not have copies of these documents at this time request copies when they're able to provide. Physical Exam Vital Signs Date Time Temp Pulse Resp B/P (MAP) Pulse Ox O2 Delivery O2 Flow Rate FiO2 11/25/17 08:00 98.2 73 17 123/57 (79) 92 11/25/17 00:00 98.4 78 20 150/78 (102) 95 11/24/17 20:00 97.7 69 20 141/78 (99) 97 11/24/17 16:00 97.6 68 20 143/63 (89) 95 Exam CONSTITUTIONAL/GENERAL: This is an adequately nourished patient, in no apparent distress. TUBES/LINES/DRAINS: Peripheral IV left upper extremity, Mckeon catheter SKIN: No jaundice, rashes, or lesions. Few ecchymosis to upper extremities. No wounds seen anteriorly. Skin warm and dry. HEAD: Atraumatic. Normocephalic. EYES: Pupils equal and round and reactive. Extraocular motions intact. No scleral icterus. No injection or drainage. Fundi not examined. ENT: Hard of hearing. Nose without bleeding or purulent drainage. Throat without visible erythema, exudates, masses, or lesions. NECK: Trachea midline. Supple, nontender. No palpable thyroid enlargement or nodularity. CARDIOVASCULAR: Regular rate and rhythm without murmur. No JVD. Peripheral pulses symmetric. RESPIRATORY/CHEST: Symmetric, unlabored respirations. Clear to auscultation. Breath sounds equal bilaterally. GASTROINTESTINAL: Abdomen soft, non-tender, nondistended. No palpable masses. No guarding. Bowel sounds present. GENITOURINARY: Without palpable bladder distension. Mckeon catheter in place. Clear yellow urine. MUSCULOSKELETAL: Extremities without clubbing, cyanosis, or edema. No joint tenderness or effusion noted. Some muscle atrophy to extremities. LYMPHATICS: No palpable cervical or supraclavicular adenopathy. NEUROLOGICAL: Awake and alert-oriented x 1-2. Severe aphasia., Speech is garbled very difficult to understand when he does verbalize. Appears only partially oriented. Moves left upper left lower extremities well. Right-sided hemiparesis secondary to old CVA. PSYCHIATRIC: No obvious anxiety/depression. no apparent hallucinations or other psychotic thought process. Diagnostic Tests Laboratory Laboratory Tests Test 11/23/17 09:33 11/25/17 04:50 White Blood Count 6.3 TH/MM3 (4.0-11.0) 3.8 TH/MM3 (4.0-11.0) Red Blood Count 2.46 MIL/MM3 (4.50-5.90) 2.37 MIL/MM3 (4.50-5.90) Hemoglobin 7.2 GM/DL (13.0-17.0) 6.8 GM/DL (13.0-17.0) Hematocrit 23.5 % (39.0-51.0) 22.0 % (39.0-51.0) Mean Corpuscular Volume 95.4 FL (80.0-100.0) 92.7 FL (80.0-100.0) Mean Corpuscular Hemoglobin 29.4 PG (27.0-34.0) 28.9 PG (27.0-34.0) Mean Corpuscular Hemoglobin Concent 30.8 % (32.0-36.0) 31.1 % (32.0-36.0) Red Cell Distribution Width 18.6 % (11.6-17.2) 17.2 % (11.6-17.2) Platelet Count 160 TH/MM3 (150-450) 131 TH/MM3 (150-450) Mean Platelet Volume 7.1 FL (7.0-11.0) 8.1 FL (7.0-11.0) Neutrophils (%) (Auto) 69.5 % (16.0-70.0) 56.8 % (16.0-70.0) Lymphocytes (%) (Auto) 18.8 % (9.0-44.0) 22.8 % (9.0-44.0) Monocytes (%) (Auto) 8.1 % (0.0-8.0) 13.6 % (0.0-8.0) Eosinophils (%) (Auto) 3.5 % (0.0-4.0) 6.5 % (0.0-4.0) Basophils (%) (Auto) 0.1 % (0.0-2.0) 0.3 % (0.0-2.0) Neutrophils # (Auto) 4.4 TH/MM3 (1.8-7.7) 2.2 TH/MM3 (1.8-7.7) Lymphocytes # (Auto) 1.2 TH/MM3 (1.0-4.8) 0.9 TH/MM3 (1.0-4.8) Monocytes # (Auto) 0.5 TH/MM3 (0-0.9) 0.5 TH/MM3 (0-0.9) Eosinophils # (Auto) 0.2 TH/MM3 (0-0.4) 0.2 TH/MM3 (0-0.4) Basophils # (Auto) 0.0 TH/MM3 (0-0.2) 0.0 TH/MM3 (0-0.2) CBC Comment DIFF FINAL DIFF FINAL Differential Comment Blood Urea Nitrogen 93 MG/DL (7-18) 87 MG/DL (7-18) Creatinine 8.40 MG/DL (0.60-1.30) 7.70 MG/DL (0.60-1.30) Random Glucose 157 MG/DL (74-106) 90 MG/DL (74-106) Total Protein 6.0 GM/DL (6.4-8.2) 6.1 GM/DL (6.4-8.2) Calcium Level 6.7 MG/DL (8.5-10.1) 6.9 MG/DL (8.5-10.1) Sodium Level 146 MEQ/L (136-145) 146 MEQ/L (136-145) Potassium Level 5.1 MEQ/L (3.5-5.1) 5.0 MEQ/L (3.5-5.1) Chloride Level 116 MEQ/L (98-107) 118 MEQ/L (98-107) Carbon Dioxide Level 20.7 MEQ/L (21.0-32.0) 18.5 MEQ/L (21.0-32.0) Anion Gap 9 MEQ/L (5-15) 10 MEQ/L (5-15) Estimat Glomerular Filtration Rate 6 ML/MIN (>89) 7 ML/MIN (>89) Protein Corrected Calcium 7.2 MG/DL (8.5-10.1) 7.4 MG/DL (8.5-10.1) Phosphorus Level 5.3 MG/DL (2.5-4.9) Magnesium Level 2.3 MG/DL (1.5-2.5) Result Diagram: 11/25/1744911/25/17449 Microbiology Microbiology Date/Time Source Procedure Growth Status 11/23/17 05:50 Stool Stool Stool Occult Blood ([facility]) - Final HEMOCCULT NEGATIVE Complete Imaging Last Impressions Head CT 11/21/17956 Signed Impressions: Service Date/Time: November 10:11 - CONCLUSION: Chronic and small vessel ischemic changes without any evidence for acute hemorrhage or mass effect. Danisha Damon MD Chest X-Ray 11/21/17 0997 Signed Impressions: Service Date/Time: November 10:10 - CONCLUSION: 1. Mild chronic appearing interstitial changes. No acute abnormality. Charli Mcrae MD Patient/Family Conference Present at Family Conference: sudhakar pope Family Conference Time (mins): 40 Family Conference Location: Bedside Issues Discussed: Met with son, patient at bedside. Patient with limited participation he does not appear to have full insight into conditions and treatment options. He also has aphasia and difficulty expressing himself. discussion included the following: * Palliative care role, purpose, approach * Additional medical, psychosocial, and spiritual history * Patients general health, functional status, and cognitive changes in the months leading up to the current hospitalization * Patient/family understanding of the current medical problems * Patient/family understanding of prognosis * Patients goals of care as best understood from advance directives and/or conversations and/or values * Current medical treatment options and benefits/burdens of those options * Likely scenarios comparing ongoing aggressive care with a transition to comfort measures only * CODE STATUS-son affirms DNR based on patient's long-standing wishes * Review of legal decision makers-son indicates patient has 2 adult sons however he has been established as POA and healthcare decision maker for many years. Requested copies of documents. * Questions answered to the best of my ability * Palliative care contact information provided Review of hospital course, patient history, current treatments in conditions, options going forward. Patient son appears to have very good understanding of conditions and treatment options as well as patient medical history. 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 He indicates the patient's known ticket broker for many years in [place] always call the patient an "anomaly" and that he has always had significantly elevated BUN and creatinine significantly low GFR and despite that has always had good urine output and has generally not been symptomatic of acute renal failure. He tells me the patient' s baseline creatinine is 4-5 baseline BUN in the 50s, and the GFR 20s. He indicates when patient has acute infection these numbers rise and then return back to patient's baseline as infection resolves. He is absolutely adamant the patient does not want hemodialysis, and does not feel this would improve his quality of life. If his functions deteriorate such that he does not rebound and recovered to his baseline with aggressive interventions then at that time son would likely seek hospice services. In the meantime he wishes to continue semi-aggressive interventions such as IV antibiotics, lab work etc. in hopes of maintaining patient current quality of life. He does wish to avoid hospitalization however would seek acute hospitalization for resolvable issues. He is in communications with [facility] care regarding set up of a tailored care program for this patient that is not quite hospice but more like palliative in the outpatient/home setting. Assessment and Plan Disease Oriented Problem List: (1) Urinary tract infection (2) Acute on chronic renal failure (3) Metabolic encephalopathy (4) CKD (chronic kidney disease) stage 4, GFR 15-29 ml/min (5) Anemia (6) Hypertension Symptom Scale: (1) Confusion Pertinent Non-Medical Issues Psychosocial: Spiritual: Legal:Patient is unable to fully make all of his own decisions though may participate in shared decision-making. Son reports that he is designated surrogate/POA though we do not have copies of these documents at this time request copies when they're able to provide. Ethical issues impacting care: Important Contacts MARY LOU SANTIZO (SON) [phone] . Prognosis This patient was admitted for more confusion/altered mental status, with findings of acute renal failure, UTI. According to his son he has these acute renal episodes with infection which clear and patient baseline renal function is significantly elevated and he remained stable at that. Recommended for hospice by nephrology. It appears the patient has functioned with his baseline renal function elevated, with reasonable quality of life for the past several years according to his son. Likely with ongoing aggressive interventions she might continue in this fashion, though certainly given advanced age and for other medical comorbidities he does remain at risk for complications and decline . Code Status: No Code Plan * Legal decision maker:Patient is unable to fully make all of his own decisions though may participate in shared decision-making. Son reports that he is designated surrogate/POA though we do not have copies of these documents at this time request copies when they're able to provide. * Goals: Goals are semi-aggressive at this time. Son indicates patient has lived with kidney disease for some time and went acute infections are cleared he returns to his baseline elevated BUN and creatinine. He has a reasonable quality of life in his [facility] setting. Son and patient wish to continue semi- aggressive treatments when acute issues are easily resolvable with IV antibiotics etc., however no invasive or aggressive measures such as hemodialysis, intubation, cardiac resuscitation. Son plans for patient to follow outpatient in his [facility] setting with essentially a [id number]- community type service to be provided by [facility]. son accepts that at some point pt may not respond to treatments and may not rebound to his baseline, and at that time son would want him to transition to comfort focus only,would elect hospice at that time. He is open to ongoing conversations as clinical course evolves. Plan to follow up with them [facility] after antibiotic course completed. * CODE STATUS: DNR * SYMPTOMS: --bladder spasms- hx of bladder spasms w severe UTIs and urine retention, though none currently. cont to monitor --AMS/confusion- 2/2 to infectious process, baseline mostly cognitively sharp low some mild confusion, may resolve as acute infection resolves and renal functions improve slightly to pt baseline --no other chronic pain , pain reported * Palliative care will continue to follow during hospital course as condition evolves, to assist patient/decision-maker with understanding of medical conditions, weighing benefits/burdens of treatment options, for clarification of goals of treatment. Additionally will assist with any symptoms of palliative concern Thank you for the opportunity to participate in the care of Mr. Santizo. Attestation To help prompt me to consider important information that might be impacting today's encounter and assessment, information from prior notes written by myself or my colleagues may have been "brought forward" into today's note. My signature on this note, however, is an attestation that I personally performed the exam, history, and/or decision-making noted today, and, unless otherwise indicated, the interactions with patient, family, and staff as well as the review of records all occurred today. I also attest that the listed assessment and stated plan reflect my best clinical judgment today based on the combination of historical information, prior notes, and today's exam/ interactions. When time spent is documented, it refers only to time spent today by the signer, or if indicated, combined time spent today by collaborating physician/nurse practitioner. Isabelle Garcia Nov 25, 2017 12:35
[2017-11-25] MEDS: CALCIUM ACETATE 667 MG CAP PO SCH ×2 (15:16→17:18)
[2017-11-25] MEDS: ATORVASTATIN 10 MG TAB PO SCH (17:18)
[2017-11-25] MEDS: amLODIPine BESYLATE 5 MG TAB PO SCH (17:18)
[2017-11-26] VITALS: BP 149/72; PULSE 85; RESP 18; TEMP 98.2; O2SAT 92
[2017-11-26] MEDS: ALPRAZolam 0.5 MG TAB PO PRN (00:02)
[2017-11-26] MEDS: LEVOTHYROXINE SODIUM 25 MCG TAB PO SCH (06:11)
[2017-11-26 08:00] VITALS: BP 156/85; PULSE 80; RESP 18; TEMP 99; O2SAT 92
[2017-11-26] MEDS: CALCIUM ACETATE 667 MG CAP PO SCH ×3 (09:00→18:00)
[2017-11-26] MEDS: SODIUM CHLORIDE 0.9% FLUSH 10 ML FLUSH IV FLUSH SCH ×2 (09:00→21:55)
[2017-11-26] MEDS: PARoxetine HCL 20 MG TAB PO SCH ×2 (09:00→11:31)
[2017-11-26] MEDS: TAMSULOSIN HCL 0.4 MG CAP PO SCH ×2 (09:00→13:35)
[2017-11-26] MEDS: SODIUM BICARBONATE 325 MG TAB PO SCH ×2 (09:00→18:00)
--- NOTE | 2017-11-26 09:31 | HHI.PR ---
Subjective Remarks Follow-up acute renal failure and UTI. Patient seen and examined, sitting up in bed eating breakfast. No apparent distress. Patient reportedly confused, at baseline. Denies any new acute complaints overnight. Denies any pain. Afebrile. Vital signs stable. Objective Vitals Vital Signs Date Time Temp Pulse Resp B/P (MAP) Pulse Ox O2 Delivery O2 Flow Rate FiO2 11/26/17 00:00 98.2 85 18 149/72 (97) 92 11/25/17 20:00 98.8 83 18 162/78 (106) 93 11/25/17 17:58 96.8 71 16 138/73 94 11/25/17 16:00 98.4 71 18 145/75 (98) 95 11/25/17 15:25 98.3 71 18 138/72 95 11/25/17 15:10 97.7 73 16 135/75 94 11/25/17 12:00 99.2 69 18 137/65 (89) 93 I/O 11/25/17 11/25/17 11/25/17 11/26/17 11/26/17 11/26/17 07:00 15:00 23:00 07:00 15:00 23:00 Intake Total 635 ml 100 ml 913 ml 585 ml Output Total 850 ml 1650 ml Balance -215 ml 100 ml 913 ml -1065 ml Intake Oral 120 ml 0 ml IV Total 515 ml 100 ml 498 ml 585 ml Packed Cells 400 ml Blood Product IV Normal Saline Flush 15 ml Output Urine Total 850 ml 1650 ml # Bowel Movements 0 Result Diagram: 11/25/17 0450 11/25/17 045 Imaging Last Impressions Head CT 11/21/17956 Signed Impressions: Service Date/Time: November 10:11 - CONCLUSION: Chronic and small vessel ischemic changes without any evidence for acute hemorrhage or mass effect. Danisha Damon MD Chest X-Ray 11/21/17956 Signed Impressions: Service Date/Time: November 10:10 - CONCLUSION: 1. Mild chronic appearing interstitial changes. No acute abnormality. Charli Mcrae MD Objective Remarks GENERAL: Well-developed, well-nourished, in no acute distress. alert HEENT: Head is normocephalic without any lesions or masses noted. Facial features are symmetric. Eyes: Extraocular muscles are intact. Conjunctivae were clear. CARDIAC: Regular rhythm regular rate, S1/S2, no murmurs gallops or rubs PULMONOLOGY: Clear to auscultation bilaterally, no wheeze, rhonchi, or Rales. No use of the session muscles on inspiration or expiration EXTREMITIES: Mild upper extremity nonpitting edema, NEUROLOGY: Mood and affect appear appropriate. Cranial nerves II through XII grossly intact. Speech appears be mumbled at times A/P Problem List: (1) Metabolic encephalopathy ICD Code: G93.41 - Metabolic encephalopathy (2) Urinary tract infection ICD Code: N39.0 - Urinary tract infection, site not specified Status: Acute (3) Hyperkalemia ICD Code: E87.5 - Hyperkalemia Status: Acute (4) CKD (chronic kidney disease) stage 4, GFR 15-29 ml/min ICD Code: N18.4 - Chronic kidney disease, stage 4 (severe) Status: Acute (5) Anemia ICD Code: D64.9 - Anemia, unspecified Status: Chronic Assessment and Plan Metabolic encephalopathy likely secondary to end-stage renal disease, urinary tract infection Follow urine culture. Continue monitor neurological function and mentation. Acute on chronic kidney disease stage V With associated complications of encephalopathy, hyperkalemia, hypermagnesemia, hyperphosphatemia, hypocalcemia, metabolic acidosis Patient will require to have dialysis for to have any form of positive outcomes - Family does not want pursue dialysis at this time. Hospice consulted, however family still wants specific aggressive measures that hospice cannot provide. Hospice was declined. Nephrology consulted for recommendations. Complicated urinary tract infection associated with indwelling Mckeon, encephalopathy Urine culture with Pseudomonas and ESBL positive Escherichia coli Infectious disease consulted for recommendations. Patient continued on imipenem Infectious disease recommended repeat culture in 3 days and may discontinue imipenem if cultures are negative for ESBL, follow culture. 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 Status post one unit PRBC transfused. Recheck CBC today. Follow. Nephrology evaluated patient and indicated that patient may have Procrit weekly. Next dose 12/01/17 Nephrology indicate patient can have outpatient Procrit with CBC monitor weekly Hypertension, hyperlipidemia, Hypothyroidism, history of CVA, benign prostatic hypertrophy Home medications have been continued at specific times that family is requesting. DVT prevention Sequential compression devices Discharge disposition: Rather complicated situation with patient being hospice appropriate. Family has met with hospice and still has specific aggressive measures that they aren't wanting to be done. However hospice cannot provide those for him at this time. Hospice was declined. However family and [facility] are trying to arrange home health care through their services at the [facility]. [place] in the family are working together to try to make arrangements, provide medications of the family still requested to be given. Palliative care has been consulted to help with goals of care. Discharge Planning At least 3 more days waiting for cultures and antibiotics. The plans are to return to [facility] with [facility] to provide home health care Problem Qualifiers (1) Urinary tract infection: (2) Anemia: Qualified Codes: N18.5 - Chronic kidney disease, stage 5; D63.1 - Anemia in chronic kidney disease Simona Cordoba Nov 26, 2017 09:31
[2017-11-26] MEDS: IMIPENEM/CILASTATIN INJ 250 MG in SODIUM CHLORIDE 0.9% INJ 100 ML IV SCH ×2 (09:56→21:55)
[2017-11-26 10:18] LABS: AUTOMATED NEUTROPHIL # 1.8 TH/MM3 (1.8-7.7); BASOPHIL % 0.1 % (0.0-2.0); EOSINOPHIL # 0.1 TH/MM3 (0-0.4); EOSINOPHIL % 3.1 % (0.0-4.0); HEMATOCRIT 24.7 % (39.0-51.0); HEMOGLOBIN 7.8 GM/DL (13.0-17.0); LYMPH % 22.7 % (9.0-44.0); LYMPHOCYTE # 0.7 TH/MM3 (1.0-4.8); MEAN CELL VOLUME 92.5 FL (80.0-100.0); MEAN CORPUSCULAR HGB CONC 31.4 % (32.0-36.0); MEAN PLATELET VOLUME 7.4 FL (7.0-11.0); MONO % 16.8 % (0.0-8.0); MONOCYTE # 0.5 TH/MM3 (0-0.9); NEUT % 57.3 % (16.0-70.0); PLATELET COUNT 118 TH/MM3 (150-450); RED BLOOD COUNT 2.67 MIL/MM3 (4.50-5.90); RED CELL DISTRIBUTION WIDTH 18.5 % (11.6-17.2); WHITE BLOOD COUNT 3.1 TH/MM3 (4.0-11.0)
--- NOTE | 2017-11-26 10:31 | HHI.FF ---
Face to Face Verification Diagnosis: (1) Metabolic encephalopathy (2) ESRD (end stage renal disease) on dialysis (3) Hypertension (4) Metabolic acidosis (5) CKD (chronic kidney disease) stage 4, GFR 15-29 ml/min (6) Confusion Physical Therapy Order: Evaluate and Treat Home Health Nursing Order: Medical education Signs/symptoms of disease process Medication education-adverse effect I have seen patient Carson Paris on 11/26/17. My clinical findings support the need for the requested home health care services because: Ltd mobility - disease progression Deconditioned w/ increased weakness I certify that my clinical findings support that this patient is homebound because: Impaired cognitive ability/safety Simona Cordoba Nov 26, 2017 10:31
[2017-11-26] MEDS: METHYLPHENIDATE HCL 5 MG TAB PO SCH (10:34)
[2017-11-26] MEDS: METOPROLOL TARTRATE 25 MG TAB PO SCH (10:34)
[2017-11-26] MEDS: ASPIRIN 325 MG TAB PO SCH (10:34)
[2017-11-26 10:40] LABS: BICARBONATE 18.4 MEQ/L (21.0-32.0); CALCIUM 7.4 MG/DL (8.5-10.1); CREATININE 7.4 MG/DL (0.60-1.30)
[2017-11-26 12:00] VITALS: BP 148/77; PULSE 74; RESP 16; TEMP 98.1; O2SAT 94
[2017-11-26 16:00] VITALS: BP 156/76; PULSE 79; RESP 18; TEMP 98.8; O2SAT 91
[2017-11-26] MEDS: ATORVASTATIN 10 MG TAB PO SCH (18:00)
--- NOTE | 2017-11-26 18:04 | HHI.IDPN ---
Subjective Subjective Remarks ID FU DR COLMENARES PT VERY LETHARGIC EATING DINNER AND NEARLY FALLING IN HIS FOOD! SON AT THE BEDSIDE PT IS USUALLY MORE ALERT THAN THIS BUT OVERALL SEEMS NEAR BASELINE ACCORDING TO SON WAS AT [facility] RECENTLY AND TREATED WITH ROCEPHIN FOR UTI/ SLIGHT INFILTRATE ON XRAY Allergies: Coded Allergies: No Known Allergies (Unverified , 12/28/16) Review of Systems Constitutional Constitutional: Fatigue, Weakness Objective . Vital Signs Date Time Temp Pulse Resp B/P (MAP) Pulse Ox O2 Delivery O2 Flow Rate FiO2 11/26/17 12:00 98.1 74 16 148/77 (100) 94 11/26/17 08:00 99.0 80 18 156/85 (108) 92 11/26/17 00:00 98.2 85 18 149/72 (97) 92 11/25/17 20:00 98.8 83 18 162/78 (106) 93 . Laboratory Tests Test 11/25/17 04:50 11/26/17 10:00 White Blood Count 3.8 TH/MM3 3.1 TH/MM3 Red Blood Count 2.37 MIL/MM3 2.67 MIL/MM3 Hemoglobin 6.8 GM/DL 7.8 GM/DL Hematocrit 22.0 % 24.7 % Mean Corpuscular Volume 92.7 FL 92.5 FL Mean Corpuscular Hemoglobin 28.9 PG 29.0 PG Mean Corpuscular Hemoglobin Concent 31.1 % 31.4 % Red Cell Distribution Width 17.2 % 18.5 % Platelet Count 131 TH/MM3 118 TH/MM3 Mean Platelet Volume 8.1 FL 7.4 FL Neutrophils (%) (Auto) 56.8 % 57.3 % Lymphocytes (%) (Auto) 22.8 % 22.7 % Monocytes (%) (Auto) 13.6 % 16.8 % Eosinophils (%) (Auto) 6.5 % 3.1 % Basophils (%) (Auto) 0.3 % 0.1 % Neutrophils # (Auto) 2.2 TH/MM3 1.8 TH/MM3 Lymphocytes # (Auto) 0.9 TH/MM3 0.7 TH/MM3 Monocytes # (Auto) 0.5 TH/MM3 0.5 TH/MM3 Eosinophils # (Auto) 0.2 TH/MM3 0.1 TH/MM3 Basophils # (Auto) 0.0 TH/MM3 0.0 TH/MM3 CBC Comment DIFF FINAL DIFF FINAL Differential Comment Laboratory Tests Test 11/25/17 04:50 11/26/17 10:00 Blood Urea Nitrogen 87 MG/DL 81 MG/DL Creatinine 7.70 MG/DL 7.40 MG/DL Random Glucose 90 MG/DL 137 MG/DL Total Protein 6.1 GM/DL 6.0 GM/DL Calcium Level 6.9 MG/DL 7.4 MG/DL Phosphorus Level 5.3 MG/DL Magnesium Level 2.3 MG/DL Sodium Level 146 MEQ/L 143 MEQ/L Potassium Level 5.0 MEQ/L 4.7 MEQ/L Chloride Level 118 MEQ/L 114 MEQ/L Carbon Dioxide Level 18.5 MEQ/L 18.4 MEQ/L Anion Gap 10 MEQ/L 11 MEQ/L Estimat Glomerular Filtration Rate 7 ML/MIN 7 ML/MIN Protein Corrected Calcium 7.4 MG/DL 8.0 MG/DL Microbiology Date/Time Source Procedure Growth Status 11/26/17 05:15 Urine Catheterized Urine Urine Culture Pending Received Physical Exam LETHARGIC / O X 1 PERRL CHEST: + WHEEZES COURSE RHONICH CARDIAC: RRR ABD: SOFT / ACTIVE BS EXT: NO EDEMA Assessment & Plan Diagnosis: (1) Weakness ICD Codes: R53.1 - Weakness Status: Acute (2) Urinary tract infection ICD Codes: N39.0 - Urinary tract infection, site not specified Status: Acute Plan: CONTINUE IMIPENEM DAY 5 FOLLOW CULTURES PT SHOULD NOT EAT WHEN SO LETHARGIC HIGH SUSPICION OF ASPIRATION WILL MONITOR AND FU (3) Confusion ICD Codes: R41.0 - Disorientation, unspecified (4) Metabolic encephalopathy ICD Codes: G93.41 - Metabolic encephalopathy (5) ESRD (end stage renal disease) on dialysis ICD Codes: N18.6 - End stage renal disease; Z99.2 - Dependence on renal dialysis Problem Qualifiers (1) Urinary tract infection: Lily Webb Nov 26, 2017 18:04
[2017-11-26] MEDS: amLODIPine BESYLATE 5 MG TAB PO SCH (19:25)
[2017-11-26 20:00] VITALS: BP 164/87; PULSE 85; RESP 20; TEMP 98.9; O2SAT 93
[2017-11-27] VITALS: BP 142/83; PULSE 78; RESP 20; TEMP 97.3; O2SAT 93
[2017-11-27 04:00] VITALS: BP 151/83; PULSE 75; RESP 20; TEMP 99.1; O2SAT 93
[2017-11-27] MEDS: SODIUM CHLOR 0.9% 1000 ML INJ 1,000 ML IV SCH (04:22)
[2017-11-27 05:27] LABS: HEMATOCRIT 24.6 % (39.0-51.0); MEAN CELL VOLUME 92.1 FL (80.0-100.0); MEAN CORPUSCULAR HGB CONC 32.5 % (32.0-36.0); PLATELET COUNT 113 TH/MM3 (150-450); RED BLOOD COUNT 2.67 MIL/MM3 (4.50-5.90); WHITE BLOOD COUNT 2.8 TH/MM3 (4.0-11.0)
[2017-11-27] MEDS: LEVOTHYROXINE SODIUM 25 MCG TAB PO SCH (05:43)
[2017-11-27 05:49] LABS: CALCIUM 7.7 MG/DL (8.5-10.1)
[2017-11-27 05:50] LABS: BICARBONATE 17.4 MEQ/L (21.0-32.0); MAGNESIUM 2.3 MG/DL (1.5-2.5)
[2017-11-27 05:53] LABS: CREATININE 7.5 MG/DL (0.60-1.30); PHOSPHORUS 5.4 MG/DL (2.5-4.9)
[2017-11-27 07:29] LABS: LYMPHOCYTES 34 % (9-44); MONOCYTES 18 % (0-8); NEUTROPHIL # MANUAL DIFF 1.2 TH/MM3 (1.8-7.7); POLYS (SEG NEUTROPHILS) 44 % (16-70)
[2017-11-27 08:00] VITALS: BP 143/86; PULSE 76; RESP 18; TEMP 96.7; O2SAT 97
[2017-11-27] MEDS: METOPROLOL TARTRATE 25 MG TAB PO SCH (09:00)
[2017-11-27] MEDS: PARoxetine HCL 20 MG TAB PO SCH (09:00)
[2017-11-27] MEDS: SODIUM BICARBONATE 325 MG TAB PO SCH ×2 (09:00→18:22)
[2017-11-27] MEDS: SODIUM CHLORIDE 0.9% FLUSH 10 ML FLUSH IV FLUSH SCH ×2 (09:00→21:00)
[2017-11-27] MEDS: CALCIUM ACETATE 667 MG CAP PO SCH ×3 (09:00→18:23)
[2017-11-27] MEDS: ASPIRIN 325 MG TAB PO SCH (09:00)
[2017-11-27] MEDS: METHYLPHENIDATE HCL 5 MG TAB PO SCH (09:00)
[2017-11-27] MEDS: TAMSULOSIN HCL 0.4 MG CAP PO SCH (09:00)
--- NOTE | 2017-11-27 09:25 | HHI.PR ---
Subjective Remarks Follow metabolic encephalopathy, UTI. Patient seen and examined, lying in bed comfortably asleep. Patient awakens to noxious stimuli, pretty drowsy today. Patient is confused, at baseline. Afebrile overnight. Vital signs stable. Denies any pain. Awaiting urine culture. Objective Vitals Vital Signs Date Time Temp Pulse Resp B/P (MAP) Pulse Ox O2 Delivery O2 Flow Rate FiO2 11/27/17 04:00 99.1 75 20 151/83 (105) 93 11/27/17 00:00 97.3 78 20 142/83 (102) 93 11/26/17 20:00 98.9 85 20 164/87 (112) 93 11/26/17 16:00 98.8 79 18 156/76 (102) 91 11/26/17 12:00 98.1 74 16 148/77 (100) 94 I/O 11/26/17 11/26/17 11/26/17 11/27/17 11/27/17 11/27/17 07:00 15:00 23:00 07:00 15:00 23:00 Intake Total 585 ml 100 ml 542 ml Output Total 1650 ml 775 ml Balance -1065 ml 100 ml -233 ml Intake Oral 0 ml 60 ml IV Total 585 ml 100 ml 482 ml Output Urine Total 1650 ml 775 ml # Bowel Movements 1 Result Diagram: 11/27/174 11/27/17 0444 Imaging Last Impressions Head CT 11/21/17956 Signed Impressions: Service Date/Time: November 10:11 - CONCLUSION: Chronic and small vessel ischemic changes without any evidence for acute hemorrhage or mass effect. Danisha Damon MD Chest X-Ray 11/21/17956 Signed Impressions: Service Date/Time: November 10:10 - CONCLUSION: 1. Mild chronic appearing interstitial changes. No acute abnormality. Charli Mcrae MD Objective Remarks GENERAL: Well-developed, well-nourished, lying in bed asleep. In no apparent distress. HEENT: Head is normocephalic without any lesions or masses noted. Facial features are symmetric. Eyes: Extraocular muscles are intact. Conjunctivae were clear. CARDIAC: Regular rhythm regular rate, S1/S2, no murmurs gallops or rubs PULMONOLOGY: Clear to auscultation bilaterally, no wheeze, rhonchi, or Rales. No use of the session muscles on inspiration or expiration EXTREMITIES: Mild upper extremity nonpitting edema, NEUROLOGY: Drowsy. Cranial nerves II through XII grossly intact. Speech appears be mumbled at times A/P Problem List: (1) Metabolic encephalopathy ICD Code: G93.41 - Metabolic encephalopathy (2) Urinary tract infection ICD Code: N39.0 - Urinary tract infection, site not specified Status: Acute (3) Hyperkalemia ICD Code: E87.5 - Hyperkalemia Status: Acute (4) CKD (chronic kidney disease) stage 4, GFR 15-29 ml/min ICD Code: N18.4 - Chronic kidney disease, stage 4 (severe) Status: Acute (5) Anemia ICD Code: D64.9 - Anemia, unspecified Status: Chronic Assessment and Plan Metabolic encephalopathy likely secondary to end-stage renal disease, urinary tract infection Follow urine culture. Still pending. Continue monitor neurological function and mentation. Patient is drowsy today. Acute on chronic kidney disease stage V With associated complications of encephalopathy, hyperkalemia, hypermagnesemia, hyperphosphatemia, hypocalcemia, metabolic acidosis Patient will require to have dialysis for to have any form of positive outcomes - Family does not want pursue dialysis at this time. Hospice consulted, however family still wants specific aggressive measures that hospice cannot provide. Hospice was declined. Nephrology consulted for recommendations. Following. Complicated urinary tract infection associated with indwelling Mckeon, encephalopathy Urine culture with Pseudomonas and ESBL positive Escherichia coli Infectious disease consulted for recommendations. Patient continued on imipenem Infectious disease recommended repeat culture in 3 days and may discontinue imipenem if cultures are negative for ESBL, follow culture. 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 Status post one unit PRBC transfused. Hemoglobin stable. Nephrology evaluated patient and indicated that patient may have Procrit weekly. Next dose 12/01/17 Nephrology indicate patient can have outpatient Procrit with CBC monitor weekly Hypertension, hyperlipidemia, Hypothyroidism, history of CVA, benign prostatic hypertrophy Home medications have been continued at specific times that family is requesting. DVT prevention Sequential compression devices Discharge disposition: Rather complicated situation with patient being hospice appropriate. Family has met with hospice and still has specific aggressive measures that they aren't wanting to be done. However hospice cannot provide those for him at this time. Hospice was declined. However family and [facility] are trying to arrange home health care through their services at the [facility]. [place] in the family are working together to try to make arrangements, provide medications of the family still requested to be given. Palliative care has been consulted to help with goals of care. Discharge Planning At least 2 more days waiting for cultures and antibiotics. The plans are to return to [facility] with [facility] to provide home health care Problem Qualifiers (1) Urinary tract infection: (2) Anemia: Qualified Codes: N18.5 - Chronic kidney disease, stage 5; D63.1 - Anemia in chronic kidney disease Simona Cordoba Nov 27, 2017 09:25
[2017-11-27] MEDS: IMIPENEM/CILASTATIN INJ 250 MG in SODIUM CHLORIDE 0.9% INJ 100 ML IV SCH ×2 (10:00→21:48)
[2017-11-27 12:00] VITALS: BP 138/80; PULSE 80; RESP 18; TEMP 97; O2SAT 97
[2017-11-27 16:00] VITALS: BP 132/78; PULSE 80; RESP 18; TEMP 98; O2SAT 96
[2017-11-27] MEDS: amLODIPine BESYLATE 5 MG TAB PO SCH (18:22)
[2017-11-27] MEDS: ALPRAZolam 0.5 MG TAB PO PRN (18:22)
[2017-11-27] MEDS: ATORVASTATIN 10 MG TAB PO SCH (18:22)
[2017-11-27] MEDS: LIDOCAINE 2% JELLY 5 ML TUBE TOPICAL PRN (18:24)
[2017-11-27 20:00] VITALS: BP 136/79; PULSE 79; RESP 18; TEMP 98.1; O2SAT 96
[2017-11-28] VITALS: BP_SYST 121; BP_SYST 131; BP_DIAS 65; BP_DIAS 86; PULSE 76; RESP 17; TEMP 98; O2SAT 95; O2SAT 97
[2017-11-28] MEDS: LEVOTHYROXINE SODIUM 25 MCG TAB PO SCH (05:36)
[2017-11-28 08:00] VITALS: BP 145/78; PULSE 71; RESP 18; TEMP 98.7; O2SAT 95
[2017-11-28] MEDS: ASPIRIN 325 MG TAB PO SCH (08:35)
[2017-11-28] MEDS: TAMSULOSIN HCL 0.4 MG CAP PO SCH (08:35)
[2017-11-28] MEDS: METHYLPHENIDATE HCL 5 MG TAB PO SCH (08:35)
[2017-11-28] MEDS: PARoxetine HCL 20 MG TAB PO SCH (08:35)
[2017-11-28] MEDS: SODIUM BICARBONATE 325 MG TAB PO SCH ×2 (08:35→17:19)
[2017-11-28] MEDS: METOPROLOL TARTRATE 25 MG TAB PO SCH (08:35)
[2017-11-28] MEDS: CALCIUM ACETATE 667 MG CAP PO SCH ×3 (08:35→17:19)
[2017-11-28] MEDS ORDERED: RESP: ALBUTEROL 2.5 MG/IPRATROPIUM 0.5 MG NEB (SCH) NEB ONE (08:45)
[2017-11-28] MEDS ORDERED: RESP: ALBUTEROL 2.5 MG/IPRATROPIUM 0.5 MG NEB (PRN) NEB (08:45)
[2017-11-28] MEDS: SODIUM CHLORIDE 0.9% FLUSH 10 ML FLUSH IV FLUSH SCH ×2 (08:52→20:13)
[2017-11-28] MEDS: IMIPENEM/CILASTATIN INJ 250 MG in SODIUM CHLORIDE 0.9% INJ 100 ML IV SCH ×2 (08:55→20:12)
--- NOTE | 2017-11-28 09:08 | HHI.PR ---
Subjective Remarks Follow-up metabolic encephalopathy, UTI. Patient seen and examined, awake and alert in bed comfortably. Noticeable right high hemorrhage and erythema. Patient does not recall what happened to his eye overnight. staff psychologist at bedside , no reports of any change overnight. Patient's vital signs are stable. Afebrile overnight. Will obtain labs today. Facial x-ray ordered. Objective Vitals Vital Signs Date Time Temp Pulse Resp B/P (MAP) Pulse Ox O2 Delivery O2 Flow Rate FiO2 11/28/17 00:00 98.0 76 17 131/86 (101) 95 11/27/17 20:00 98.1 79 18 136/79 (98) 96 11/27/17 16:00 98.0 80 18 132/78 (96) 96 11/27/17 12:00 97.0 80 18 138/80 (99) 97 I/O 11/27/17 11/27/17 11/27/17 11/28/17 11/28/17 11/28/17 07:00 15:00 23:00 07:00 15:00 23:00 Intake Total 542 ml 580 ml 504 ml 126 ml Output Total 775 ml 1200 ml Balance -233 ml 580 ml -696 ml 126 ml Intake Oral 60 ml 480 ml IV Total 482 ml 100 ml 504 ml 126 ml Output Urine Total 775 ml 1200 ml # Bowel Movements 1 2 Result Diagram: 11/27/17 0444 11/27/17 0444 Imaging Last Impressions Facial Bones X-Ray 11/28/17 0000 Signed Impressions: Service Date/Time: November 09:11 - CONCLUSION: No fracture seen.. Kel Nichols MD Chest X-Ray 11/28/17 0000 Signed Impressions: Service Date/Time: November 09:11 - CONCLUSION: 1. No acute abnormality or significant interval change. Bolivar Sheth MD Head CT 11/21/17 0957 Signed Impressions: Service Date/Time: November 10:11 - CONCLUSION: Chronic and small vessel ischemic changes without any evidence for acute hemorrhage or mass effect. Danisha Damon MD Objective Remarks GENERAL: Well-developed, well-nourished, lying in bed asleep. In no apparent distress. HEENT: Head is normocephalic without any lesions or masses noted. Facial features are symmetric. Eyes: Extraocular muscles are intact. Conjunctivae the with dried hemorrhage and erythema around orbit. CARDIAC: Regular rhythm regular rate, S1/S2, no murmurs gallops or rubs PULMONOLOGY: Wheezing noted throughout anterior and posterior lung dodge. No Rhonchi, or Rales. EXTREMITIES: Mild upper extremity nonpitting edema, NEUROLOGY: Drowsy. Cranial nerves II through XII grossly intact. Speech appears be mumbled at times A/P Problem List: (1) Metabolic encephalopathy ICD Code: G93.41 - Metabolic encephalopathy (2) Urinary tract infection ICD Code: N39.0 - Urinary tract infection, site not specified Status: Acute (3) Hyperkalemia ICD Code: E87.5 - Hyperkalemia Status: Acute (4) CKD (chronic kidney disease) stage 4, GFR 15-29 ml/min ICD Code: N18.4 - Chronic kidney disease, stage 4 (severe) Status: Acute (5) Anemia ICD Code: D64.9 - Anemia, unspecified Status: Chronic Assessment and Plan Metabolic encephalopathy likely secondary to end-stage renal disease, urinary tract infection Urine culture showing gram-negative rods. Still pending. Continue monitor neurological function and mentation. Patient is awake today. Right eye erythema and hemorrhage Facial x-ray done showing no facial fractures. Will obtain CT of the facial bones to further investigate hemorrhage and drainage. Will consult ophthalmology due to sudden onset, will appreciate input and further recommendations. Supportive care. Acute on chronic kidney disease stage V With associated complications of encephalopathy, hyperkalemia, hypermagnesemia, hyperphosphatemia, hypocalcemia, metabolic acidosis Patient will require to have dialysis for to have any form of positive outcomes - Family does not want pursue dialysis at this time. Hospice consulted, however family still wants specific aggressive measures that hospice cannot provide. Hospice was declined. Nephrology consulted for recommendations. Following. Complicated urinary tract infection associated with indwelling Mckeon, encephalopathy Urine culture with Pseudomonas and ESBL positive Escherichia coli Infectious disease consulted for recommendations. Patient continued on imipenem Infectious disease recommended repeat culture in 3 days and may discontinue imipenem if cultures are negative for ESBL, culture is gram-negative. Awaiting final growth. 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 Status post one unit PRBC transfused. Hemoglobin stable. Will recheck CBC today. Nephrology evaluated patient and indicated that patient may have Procrit weekly. Next dose 12/01/17 Nephrology indicate patient can have outpatient Procrit with CBC monitor weekly Hypertension, hyperlipidemia, Hypothyroidism, history of CVA, benign prostatic hypertrophy Home medications have been continued at specific times that family is requesting. DVT prevention Sequential compression devices Discharge disposition: Rather complicated situation with patient being hospice appropriate. Family has met with hospice and still has specific aggressive measures that they aren't wanting to be done. However hospice cannot provide those for him at this time. Hospice was declined. However family and [facility] are trying to arrange home health care through their services at the [facility]. [place] in the family are working together to try to make arrangements, provide medications of the family still requested to be given. Palliative care has been consulted to help with goals of care. Discharge Planning At least 2 more days waiting for cultures and antibiotics. The plans are to return to [facility] with [facility] to provide home health care Problem Qualifiers (1) Urinary tract infection: (2) Anemia: Qualified Codes: N18.5 - Chronic kidney disease, stage 5; D63.1 - Anemia in chronic kidney disease Simona Cordoba Nov 28, 2017 09:08
--- NOTE | 2017-11-28 09:55 | RADRPT ---
EXAM DATE/TIME: 11/28/2017 09:11 [facility] COMPARISON: CHEST SINGLE AP, November 21, 2017, 10:10. INDICATIONS : Short of breath. MEDICAL HISTORY : Hypertension. Cardiovascular disease. SURGICAL HISTORY : CABG. ENCOUNTER: Subsequent ACUITY: 2 days PAIN SCORE: 0/10 LOCATION: Bilateral chest FINDINGS: No new focal pleural or parenchymal opacities. Postsurgical features of prior median sternotomy and c ardiac surgery. The cardiomediastinal contours are unremarkable. Osseous structures are intact. CONCLUSION: 1. No acute abnormality or significant interval change. Bolivar Sheth MD on November 28, 2017 at 9:51 Board Certified Radiologist. This report was verified electronically.
--- NOTE | 2017-11-28 09:58 | RADRPT ---
EXAM DATE/TIME: 11/28/2017 09:11 [facility] COMPARISON: No previous studies available for comparison. INDICATIONS : Right eye bruising, injury unknown. MEDICAL HISTORY : Cardiovascular disease. Hypertension Cerebrovascular disease. SURGICAL HISTORY : None. ENCOUNTER: Subsequent ACUITY: 1 day PAIN SCORE: Non-responsive. LOCATION: Right eye FINDINGS: Two view examination of the facial bones demonstrates no gross evidence of fracture. No radiopaque f oreign bodies are seen. Dental hardware. CONCLUSION: No fracture seen.. Kel Nichols MD on November 28, 2017 at 9:55 Board Certified Radiologist. This report was verified electronically.
[2017-11-28 12:00] VITALS: BP 148/83; PULSE 64; RESP 18; TEMP 98.4; O2SAT 95
[2017-11-28 12:57] LABS: AUTOMATED NEUTROPHIL # 1.9 TH/MM3 (1.8-7.7); BASOPHIL % 0.1 % (0.0-2.0); EOSINOPHIL # 0.1 TH/MM3 (0-0.4); EOSINOPHIL % 2.4 % (0.0-4.0); HEMATOCRIT 27.9 % (39.0-51.0); HEMOGLOBIN 8.7 GM/DL (13.0-17.0); LYMPH % 26.9 % (9.0-44.0); LYMPHOCYTE # 0.9 TH/MM3 (1.0-4.8); MEAN CELL VOLUME 90.7 FL (80.0-100.0); MEAN CORPUSCULAR HEMOGLOBIN 28.3 PG (27.0-34.0); MEAN CORPUSCULAR HGB CONC 31.2 % (32.0-36.0); MEAN PLATELET VOLUME 8.5 FL (7.0-11.0); MONO % 13.6 % (0.0-8.0); MONOCYTE # 0.5 TH/MM3 (0-0.9); PLATELET COUNT 130 TH/MM3 (150-450); RED BLOOD COUNT 3.07 MIL/MM3 (4.50-5.90); RED CELL DISTRIBUTION WIDTH 17.8 % (11.6-17.2); WHITE BLOOD COUNT 3.4 TH/MM3 (4.0-11.0)
[2017-11-28 13:01] LABS: CALCIUM 7.8 MG/DL (8.5-10.1)
[2017-11-28 13:05] LABS: CREATININE 7.5 MG/DL (0.60-1.30)
[2017-11-28] MEDS: LIDOCAINE 2% JELLY 5 ML TUBE TOPICAL PRN (13:12)
--- NOTE | 2017-11-28 15:42 | RADRPT ---
EXAM DATE/TIME: 11/28/2017 11:35 [facility] COMPARISON: CHEST SINGLE AP, November 28, 2017, 9:11. FACIAL BONES LTD (<3VWS), November 28, 2017, 9:11. INDICATIONS : Bleeding and bruising around right eye. RADIATION DOSE: 30.01 CTDIvol (mGy) MEDICAL HISTORY : Renal failure, chronic. Cerebrovascular disease. Cardiovascular diseaseHypertension. Diabetes. SURGICAL HISTORY : CABG ENCOUNTER: Initial ACUITY: 1 day PAIN SCORE: Non-responsive LOCATION: Right facial TECHNIQUE: Volumetric scanning of the facial bones was performed. Using automated exposure control and adjustme nt of the mA and/or kV according to patient size, radiation dose was kept as low as reasonably achiev able to obtain optimal diagnostic quality images. DICOM format image data is available electronicall y for review and comparison. FINDINGS: ORBITS: The orbital and infraorbital osseous structures are intact. The retroconal structures have a normal configuration. No radiopaque foreign bodies are seen. NASAL BONE: The nasal bone and maxillary spine are intact ZYGOMATIC ARCHES: Symmetric without evidence of fracture. SINUSES: The maxillary, ethmoid and frontal sinuses are intact. Mucosal thickening is noted in the ethmoidal a ir cells and maxillary sinuses. NASAL CAVITY: The nasal septum is intact and midline. The lacrimal ducts are intact. SOFT TISSUES: No radiopaque foreign bodies seen. No soft-tissue swelling is seen. INTRACRANIAL: No intracranial air seen. CRIBIFORM PLATE: Grossly intact. CONCLUSION: 1. No evidence of fracture or malalignment. The orbits are intact. 2. The right globe appears intact. 3. Mild sinusitis. Scott Prince MD on November 28, 2017 at 15:37 Board Certified Radiologist. This report was verified electronically.
[2017-11-28 16:00] VITALS: BP 142/79; PULSE 62; RESP 20; TEMP 97.9; O2SAT 96
[2017-11-28] MEDS: amLODIPine BESYLATE 5 MG TAB PO SCH (17:18)
[2017-11-28] MEDS: ATORVASTATIN 10 MG TAB PO SCH (17:18)
[2017-11-28 20:00] VITALS: BP 155/74; PULSE 72; RESP 18; TEMP 96.9; O2SAT 93
[2017-11-29] VITALS: BP 156/74; PULSE 74; RESP 18; TEMP 97.8; O2SAT 91
[2017-11-29] MEDS: LEVOTHYROXINE SODIUM 25 MCG TAB PO SCH (06:30)
[2017-11-29 08:00] VITALS: BP 140/74; PULSE 65; RESP 18; TEMP 97.2; O2SAT 96
[2017-11-29] MEDS: SODIUM BICARBONATE 325 MG TAB PO SCH (10:11)
[2017-11-29] MEDS: METOPROLOL TARTRATE 25 MG TAB PO SCH (10:12)
[2017-11-29] MEDS: PARoxetine HCL 20 MG TAB PO SCH (10:12)
[2017-11-29] MEDS: TAMSULOSIN HCL 0.4 MG CAP PO SCH (10:12)
[2017-11-29] MEDS: CALCIUM ACETATE 667 MG CAP PO SCH ×2 (10:12→13:48)
[2017-11-29] MEDS: ASPIRIN 325 MG TAB PO SCH (10:12)
[2017-11-29] MEDS: METHYLPHENIDATE HCL 5 MG TAB PO SCH (10:12)
[2017-11-29] MEDS: SODIUM CHLORIDE 0.9% FLUSH 10 ML FLUSH IV FLUSH SCH (10:13)
[2017-11-29] MEDS: IMIPENEM/CILASTATIN INJ 250 MG in SODIUM CHLORIDE 0.9% INJ 100 ML IV SCH (10:18)
[2017-11-29] MEDS ORDERED: TOBRAMYCIN SULFATE 80 MG/2 ML VIAL IV ONE (11:00)
--- NOTE | 2017-11-29 11:06 | HHI.IDPN ---
Subjective Subjective Remarks Patient awake. No fever Son at bedside Appetite fair Allergies: Coded Allergies: No Known Allergies (Unverified , 12/28/16) Review of Systems Constitutional Constitutional Remarks No fever Objective . Vital Signs Date Time Temp Pulse Resp B/P (MAP) Pulse Ox O2 Delivery O2 Flow Rate FiO2 11/29/17 08:00 97.2 65 18 140/74 (96) 96 11/29/17 00:00 97.8 74 18 156/74 (101) 91 11/28/17 20:00 96.9 72 18 155/74 (101) 93 11/28/17 16:00 97.9 62 20 142/79 (100) 96 11/28/17 12:00 98.4 64 18 148/83 (104) 95 . Laboratory Tests Test 11/28/17 12:15 White Blood Count 3.4 TH/MM3 Red Blood Count 3.07 MIL/MM3 Hemoglobin 8.7 GM/DL Hematocrit 27.9 % Mean Corpuscular Volume 90.7 FL Mean Corpuscular Hemoglobin 28.3 PG Mean Corpuscular Hemoglobin Concent 31.2 % Red Cell Distribution Width 17.8 % Platelet Count 130 TH/MM3 Mean Platelet Volume 8.5 FL Neutrophils (%) (Auto) 57.0 % Lymphocytes (%) (Auto) 26.9 % Monocytes (%) (Auto) 13.6 % Eosinophils (%) (Auto) 2.4 % Basophils (%) (Auto) 0.1 % Neutrophils # (Auto) 1.9 TH/MM3 Lymphocytes # (Auto) 0.9 TH/MM3 Monocytes # (Auto) 0.5 TH/MM3 Eosinophils # (Auto) 0.1 TH/MM3 Basophils # (Auto) 0.0 TH/MM3 CBC Comment DIFF FINAL Differential Comment Laboratory Tests Test 11/28/17 12:15 Blood Urea Nitrogen 79 MG/DL Creatinine 7.50 MG/DL Random Glucose 139 MG/DL Calcium Level 7.8 MG/DL Sodium Level 145 MEQ/L Potassium Level 4.7 MEQ/L Chloride Level 116 MEQ/L Carbon Dioxide Level 19.0 MEQ/L Anion Gap 10 MEQ/L Estimat Glomerular Filtration Rate 7 ML/MIN Physical Exam Awake.Oriented to person Rt eye subconjunctival hemorrhage Jia orbital ecchymoses CARDIAC: RRR ABD: SOFT / ACTIVE BS No tenderness EXT: NO EDEMA Assessment & Plan Diagnosis: (1) Urinary tract infection ICD Codes: N39.0 - Urinary tract infection, site not specified Status: Acute Plan: Patient has been on IV Imipenem. Reviewed repeat culture Plan Give dose of IV Tobramycin 300 mg x once Repeat UA and culture in 5 days. Have report faxed to my office [phone] Discussed plan with patient's son (2) CKD (chronic kidney disease) stage 4, GFR 15-29 ml/min ICD Codes: N18.4 - Chronic kidney disease, stage 4 (severe) Status: Chronic Problem Qualifiers (1) Urinary tract infection: Precious Ellison MD Nov 29, 2017 11:06
[2017-11-29 12:00] VITALS: BP 155/76; PULSE 72; RESP 20; TEMP 97.8; O2SAT 96
--- NOTE | 2017-11-29 12:09 | PD.CONS ---
History of Present Illness Service Ophthalmology Consult Requested By Reason for Consult red right eye Primary Care Physician Non-Staff Diagnoses: History of Present Illness 87 yo M who is nonverbal and has h/o ESRD, CVA presents with lethargy. Yesterday morning his right eye was noticed to be bright red. Pt nods that he has no pain and no vision changes. Son at bedside states he has no significant ocular history. Past Family Social History Allergies: Coded Allergies: No Known Allergies (Unverified , 12/28/16) Physical Exam Vital Signs Vital Signs Date Time Temp Pulse Resp B/P (MAP) Pulse Ox O2 Delivery O2 Flow Rate FiO2 11/29/17 08:00 97.2 65 18 140/74 (96) 96 11/29/17 00:00 97.8 74 18 156/74 (101) 91 11/28/17 20:00 96.9 72 18 155/74 (101) 93 11/28/17 16:00 97.9 62 20 142/79 (100) 96 Physical Exam Va cc unable EOM full OU, no diplopia CVF unable Pupils 2-1 no APD OU IOP normal to palpation OU Anterior exam OD - eyelid ecchymoses, DOMENIC, K clear, AC deep, pupil round, NS OS - normal eyelid, C/S W&Q, K clear, AC deep, pupil round, NS Laboratory Laboratory Tests Test 11/28/17 12:15 White Blood Count 3.4 Red Blood Count 3.07 Hemoglobin 8.7 Hematocrit 27.9 Mean Corpuscular Volume 90.7 Mean Corpuscular Hemoglobin 28.3 Mean Corpuscular Hemoglobin Concent 31.2 Red Cell Distribution Width 17.8 Platelet Count 130 Mean Platelet Volume 8.5 Neutrophils (%) (Auto) 57.0 Lymphocytes (%) (Auto) 26.9 Monocytes (%) (Auto) 13.6 Eosinophils (%) (Auto) 2.4 Basophils (%) (Auto) 0.1 Neutrophils # (Auto) 1.9 Lymphocytes # (Auto) 0.9 Monocytes # (Auto) 0.5 Eosinophils # (Auto) 0.1 Basophils # (Auto) 0.0 CBC Comment DIFF FINAL Differential Comment Blood Urea Nitrogen 79 Creatinine 7.50 Random Glucose 139 Calcium Level 7.8 Sodium Level 145 Potassium Level 4.7 Chloride Level 116 Carbon Dioxide Level 19.0 Anion Gap 10 Estimat Glomerular Filtration Rate 7 Date/Time Source Procedure Growth Status 11/21/17 11:20 Blood Peripheral Aerobic Blood Culture - Final NO GROWTH IN 5 DAYS Complete 11/21/17 11:20 Blood Peripheral Anaerobic Blood Culture - Final NO GROWTH IN 5 DAYS Complete 11/23/17 05:50 Stool Stool Stool Occult Blood (DONAVAN) - Final HEMOCCULT NEGATIVE Complete 11/26/17 05:15 Urine Catheterized Urine Urine Culture - Final Pseudomonas Aeruginosa Escherichia Coli Esbl Positive Multi-Drug Resistant Whit Albicans Complete Result Diagram: 11/28/17 1215 11/28/17 1215 Assessment and Plan Problem List: (1) Subconjunctival hemorrhage of right eye ICD Codes: H11.31 - Conjunctival hemorrhage, right eye Plan: Reassured pt and son that this is benign and will resolve on its own in 1 -2 weeks. Follow up as outpatient PRN. Jennifer Muir MD Nov 29, 2017 12:09
[2017-11-29] MEDS ORDERED: CALC667C PO (12:30)
--- NOTE | 2017-11-29 12:34 | HHI.DS ---
Discharge Summary Admission Date Nov 25, 2017 at 16:42 Discharge Date: Nov 29, 2017 Admitting Diagnosis RENAL FAILURE (1) Metabolic encephalopathy ICD Code: G93.41 - Metabolic encephalopathy (2) Urinary tract infection ICD Code: N39.0 - Urinary tract infection, site not specified Status: Acute (3) Hyperkalemia ICD Code: E87.5 - Hyperkalemia Status: Acute (4) CKD (chronic kidney disease) stage 4, GFR 15-29 ml/min ICD Code: N18.4 - Chronic kidney disease, stage 4 (severe) Status: Chronic (5) Anemia ICD Code: D64.9 - Anemia, unspecified Status: Chronic Procedures . Brief History - From Admission This patient is an 87-year-old gentleman with known history of end-stage renal disease not treated with renal placement therapy and not on renal medicines due to family choice. Patient had a massive stroke is 9 years ago and has been unable to care for himself. He currently lives in assisted living facility. Today he was brought over for worsening lethargy per the family. For 9 days he' s been increasingly confused with decreased oral intake and increased weakness. He has residual deficits from his stroke including upper and lower extremity deficits and is not independent. The patient has recently been in the hospital. [facility] about a month ago for urinary tract infection. Patient was given antibiotics for this and his Mckeon catheter was changed. The patient has been back to his assisted living for about a month without any difficulties until the last week and a half. He has been following up with Dr. Lira however no plans for renal replacement therapy had been initiated and the patient and family have declined in lieu of a DO NOT RESUSCITATE. Since the hospital they [facility] the family had been attempting home health care for rehabilitation however this is unsuccessful and now they would like to pursue hospice. Patient's potassium at this time 6.7, his magnesium is 3.4 and his phosphorus is 6.1. His chloride is 108. The patient is comfortable without complaints. He is anemic 9.1 without any leukocytosis. His renal function shows a GFR 5. This is chronic per the patient's family and they would not like any further treatment for this. They would like to pursue hospice options CBC/BMP: 11/28/17 1215 11/28/17 1215 Significant Findings Laboratory Tests Test 11/27/17 04:44 11/28/17 12:15 White Blood Count 2.8 TH/MM3 (4.0-11.0) 3.4 TH/MM3 (4.0-11.0) Red Blood Count 2.67 MIL/MM3 (4.50-5.90) 3.07 MIL/MM3 (4.50-5.90) Hemoglobin 8.0 GM/DL (13.0-17.0) 8.7 GM/DL (13.0-17.0) Hematocrit 24.6 % (39.0-51.0) 27.9 % (39.0-51.0) Red Cell Distribution Width 18.0 % (11.6-17.2) 17.8 % (11.6-17.2) Platelet Count 113 TH/MM3 (150-450) 130 TH/MM3 (150-450) Monocytes % 18 % (0-8) Neutrophils # (Manual) 1.2 TH/MM3 (1.8-7.7) Platelet Estimate LOW (NORMAL) Blood Urea Nitrogen 78 MG/DL (7-18) 79 MG/DL (7-18) Creatinine 7.50 MG/DL (0.60-1.30) 7.50 MG/DL (0.60-1.30) Calcium Level 7.7 MG/DL (8.5-10.1) 7.8 MG/DL (8.5-10.1) Phosphorus Level 5.4 MG/DL (2.5-4.9) Chloride Level 116 MEQ/L (98-107) 116 MEQ/L (98-107) Carbon Dioxide Level 17.4 MEQ/L (21.0-32.0) 19.0 MEQ/L (21.0-32.0) Estimat Glomerular Filtration Rate 7 ML/MIN (>89) 7 ML/MIN (>89) Mean Corpuscular Hemoglobin Concent 31.2 % (32.0-36.0) Monocytes (%) (Auto) 13.6 % (0.0-8.0) Lymphocytes # (Auto) 0.9 TH/MM3 (1.0-4.8) Random Glucose 139 MG/DL (74-106) Imaging Last Impressions Maxillofacial CT 11/28/17 0000 Signed Impressions: Service Date/Time: November 11:35 - CONCLUSION: 1. No evidence of fracture or malalignment. The orbits are intact. 2. The right globe appears intact. 3. Mild sinusitis. Scott Prince MD Facial Bones X-Ray 11/28/17 0000 Signed Impressions: Service Date/Time: November 09:11 - CONCLUSION: No fracture seen.. Kel Nichols MD Chest X-Ray 11/28/17 0000 Signed Impressions: Service Date/Time: November 09:11 - CONCLUSION: 1. No acute abnormality or significant interval change. Bolivar Sheth MD Head CT 11/21/17 0957 Signed Impressions: Service Date/Time: November 10:11 - CONCLUSION: Chronic and small vessel ischemic changes without any evidence for acute hemorrhage or mass effect. Danisha Damon MD PE at Discharge GENERAL: Well-developed, well-nourished, lying in bed asleep. In no apparent distress. HEENT: Head is normocephalic without any lesions or masses noted. Facial features are symmetric. Eyes: Extraocular muscles are intact. Conjunctivae the with dried hemorrhage and erythema around orbit. CARDIAC: Regular rhythm regular rate, S1/S2, no murmurs gallops or rubs PULMONOLOGY: Wheezing noted throughout anterior and posterior lung dodge. No Rhonchi, or Rales. EXTREMITIES: Mild upper extremity nonpitting edema, NEUROLOGY: Drowsy. Cranial nerves II through XII grossly intact. Speech appears be mumbled at times Pt update on day of discharge Follow up UTI and metabolic encephalopathy. Patient seen and examined, sitting up on side of bed comfortably with PT. Looking much better, awake and alert. Denies any pain or discomfort. Eating well. Id has seen patient today. Plan for DC today. Hospital Course Metabolic encephalopathy likely secondary to end-stage renal disease, urinary tract infection. Acute on chronic kidney disease stage with associated complications of encephalopathy, hyperkalemia, hypermagnesemia, hyperphosphatemia, hypocalcemia, metabolic acidosis. Urine culture showing Pseudomonas and ESBL positive Escherichia coli associated with indwelling Mckeon , encephalopathy Infectious disease was placed on Imipenem and recommended last dose of Tobramycin and will repeat UA after 5 days after discharge. Patient developed right eye erythema and hemorrhage. Facial x-ray done showing no facial fractures. CT of the facial bones negative. Chronic anemia secondary to chronic kidney disease. Nephrology following. Procrit given. Status post one unit PRBC transfused. Hemoglobin stable. Nephrology evaluated patient and indicated that patient may have Procrit weekly. Next dose 12/01/17. Hypertension , hyperlipidemia, Hypothyroidism, history of CVA, benign prostatic hypertrophy which are stable. Pt Condition on Discharge: Stable Discharge Disposition: [facility] Discharge Time: > 30 minutes Discharge Instructions DIET: Follow Instructions for: Heart Healthy Diet Activities you can perform: Regular-No Restrictions Follow up Referrals: Nephrology - 1 Week PCP Follow-up - 1 Week New Orders: BASIC METABOLIC PROF - 1 Week CBC WITH DIFF - 1 Month URINALYSIS - 12/04/17 @ Outside Lab - Other New Medications: Calcium Acetate (Phosphate Bin (Calcium Acetate) 667 Mg Cap 1334 MG PO TID for low phos for 30 Days, #90 CAP [Epoetin Tony Inj] () [id number] UNITS/ML INJ [id number] UNITS SQ Q7D for Anemia for 30 Days Continued Medications: Alprazolam (Alprazolam) 0.5 Mg Tab 0.5 MG PO Q6H PRN for ANXIETY, TAB 0 Refills Amlodipine (Amlodipine) 5 Mg Tab 5 MG PO DAILY for Blood Pressure Management, #30 TAB 0 Refills Aspirin (Aspirin) 325 Mg Tab 325 MG PO DAILY, #30 TAB 0 Refills Atorvastatin (Atorvastatin) 10 Mg Tab 10 MG PO HS for Cholesterol Management, #30 TAB 0 Refills Levothyroxine (Levothyroxine) 25 Mcg Tab 25 MCG PO DAILY for Thyroid, #30 TAB 0 Refills Methylphenidate IR (Methylphenidate IR) 5 Mg Tab 5 MG PO DAILY, #30 TAB 0 Refills Metoprolol Tartrate (Metoprolol Tartrate) 25 Mg Tab 25 MG PO BID, #60 TAB 0 Refills Paroxetine (Paroxetine) 20 Mg Tab 20 MG PO DAILY, #30 TAB 0 Refills Sodium Bicarbonate (Sodium Bicarbonate) 650 Mg Tab 650 MG PO BIDPC, #60 TAB 0 Refills Tamsulosin (Tamsulosin) 0.4 Mg Cap 0.4 MG PO DAILY for Manage Prostate Problems, #30 CAP 0 Refills Simona Cordoba Nov 29, 2017 12:34
[2017-11-29] MEDS ORDERED: SODIUM CHLORIDE 0.9% IV ONE (13:00)
[2017-11-29] MEDS ORDERED: TOBRAMYCIN IV ONE (13:00)
--- NOTE | 2017-11-29 13:34 | HHI.HCPN ---
Spoke with son at bedside while patient was undergoing physical therapy. Son states that they have also contacted [facility] for home care and plans have been made to transition the patient back to the [facility] once discharge has been ordered, which is expected today as his culture is complete, showing pseudomonas aeruginosa and Escherichia coli, ESBL positive with Whit albicans in his urine. Son states that he had spoken with Dr. Ellison, for infection control, discussed antibiotic therapy and arranged follow-up visit. He continues to refuse dialysis but wishes to pursue semi-aggressive care at home. He denies any current questions or needs at this time. Palliative care contact information has been provided for any future needs patient or family might have. Follow-up JULIUS. Griselda Patino Nov 29, 2017 13:34
[2017-12-01] MEDS ORDERED: EPOETIN ALFA 20,000 UNITS/ML VIAL SQ SCH (18:15)
== END 2017-11-29 17:15 | DRG 698 ==
LOC: PHED 09:41 → PHEDA 12:54 → INTOOBSV 12:54 → PH3A 14:34 → PH3B 18:36 → OBSVTOIN 11-25 16:42
PROVIDERS: ADMIT Hospitalist; ATTEND Hospitalist
PROC: 30233N1 Transfusion of Nonautologous Red Blood Cells into Peripheral Vein, Percutaneous Approach (ICD-10-PCS; principal; 2017-11-25)
DX: T83.511A Infection and inflammatory reaction due to indwelling urethral catheter, initial encounter (principal); G93.41 Metabolic encephalopathy; N17.9 Acute kidney failure, unspecified; N18.6 End stage renal disease; E87.2 Acidosis; I12.0 Hypertensive chronic kidney disease with stage 5 chronic kidney disease or end stage renal disease; I69.351 Hemiplegia and hemiparesis following cerebral infarction affecting right dominant side; N39.0 Urinary tract infection, site not specified; E87.5 Hyperkalemia; Y84.6 Urinary catheterization as the cause of abnormal reaction of the patient, or of later complication, without mention of misadventure at the time of the procedure; Z66 Do not resuscitate; F41.9 Anxiety disorder, unspecified; E78.5 Hyperlipidemia, unspecified; E03.9 Hypothyroidism, unspecified; B96.5 Pseudomonas (aeruginosa) (mallei) (pseudomallei) as the cause of diseases classified elsewhere; B96.20 Unspecified Escherichia coli [E. coli] as the cause of diseases classified elsewhere; Z16.23 Resistance to quinolones and fluoroquinolones; Z96.649 Presence of unspecified artificial hip joint; D63.1 Anemia in chronic kidney disease; H11.31 Conjunctival hemorrhage, right eye; E83.41 Hypermagnesemia; E83.51 Hypocalcemia; E83.39 Other disorders of phosphorus metabolism; N32.89 Other specified disorders of bladder; N40.0 Benign prostatic hyperplasia without lower urinary tract symptoms; Z95.1 Presence of aortocoronary bypass graft; I69.320 Aphasia following cerebral infarction
CPT/HCPCS: 36430; 70140; 70450; 70486; 71045; 76937; 80048; 80053; 81001; 82272; 83735; 84100; 84155; 85007; 85025; 85027; 86850; 86900; 86901; 86920; 87040; 87077; 87086; 87186; 93005; 94664; 96361; 96366; G0378; J0696; J0743; J1815; J2405; J3260; J7030; J7050; P9016; Q4081